=== PATIENT | female | born 1955 | race Caucasian/White ===

== ENCOUNTER 2017-11-21 12:28 | Day surgery (SDC) | payer BC ==
[2017-11-21] MEDS ORDERED: EPINEPHRINE/PF 1 MG/ML AMP ONE (12:38)
[2017-11-21] MEDS ORDERED: BSS PLUS 500 ML BOTTLE IRR ONE (12:38)
[2017-11-21] MEDS ORDERED: MOXIFLOXACIN HCL 10 DROPS/ML **OR USE OPTH ONE (12:38)
[2017-11-21] MEDS ORDERED: DUOVISC 1 KIT OPTH ONE ×2 (12:42→15:38)
[2017-11-21] MEDS ORDERED: NA CHLORIDE 0.9% 500 ML ONE (13:02)
[2017-11-21] MEDS ORDERED: CYCLOPENTOLATE 1% OPTH 2 ML ONE (13:02)
[2017-11-21] MEDS ORDERED: PHENYLEPHRINE 10% OPTH 5ML ONE (13:02)
[2017-11-21] MEDS ORDERED: CYCLOPENTOLATE 1% OPTH 2 ML OPTH ONE ×2 (13:20→13:25)
[2017-11-21] MEDS ORDERED: PHENYLEPHRINE 10% OPTH 5ML OPTH ONE ×2 (13:20→13:25)
[2017-11-21] MEDS ORDERED: PROPOFOL 200 MG/20 ML VIAL IV ONE (14:17)
[2017-11-21] MEDS ORDERED: MIDAZOLAM HCL 2 MG/2 ML INJ ONE (14:17)
[2017-11-21] MEDS ORDERED: FENTANYL CITR 100 MCG/2 ML ONE (15:07)
[2017-11-21] MEDS ORDERED: Phenylephrine HCl 10 MG/ML 1 ML VIAL ONE (15:18)
[2017-11-21] MEDS ORDERED: PROMETHAZINE 25 MG/ML VIAL ONE (15:25)
[2017-11-21] MEDS ORDERED: ONDANSETRON 4 MG/2 ML VIAL ONE (15:29)
[2017-11-21] MEDS ORDERED: EPHEDRINE SULF 50 MG/5 ML SYR ONE (15:33)
--- NOTE | 2017-11-21 15:57 | P.BOP ---
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
--- NOTE | 2017-11-22 03:20 | OP ---
Date of Procedure: 11/21/2017 Surgeon: Vinita Sandra MD Anesthesiologist: 1. Jevon Laurent C.R.N.A. 2. Hamzah Villeda M.D. Preoperative Diagnosis: Nuclear sclerotic cataract and Fuchs dystrophy, OD (right eye). Operation Performed: Phacoemulsification with intraocular lens implant, right eye. Anesthesia: General. Complications: None. Description Of Procedure: In day surgery, the patient was prepped with Betadine and draped. A conju nctival incision was made in the inferior nasal quadrant with Ashlee scissors. A sub-Tenon block c onsisting of a 1:1 mixture of 2% Xylocaine and 0.25% bupivacaine was placed through the conjunctival incision with a blunt cannula. A Honan balloon was placed over the eye and the patient was transferr ed to the operating room. In the operating room the patient was prepped and draped in the usual sterile fashion for ophthalmic surgery. A lid speculum was placed in the right eye. Two paracentesis sites were made superiorly an d inferiorly in the limbal cornea. Viscoat was placed in the anterior chamber and a crescent blade w as used to make a corneal groove and tunnel, and a keratome was used to enter the anterior chamber. Provisc was placed in the anterior chamber and a 360 degree capsulotomy was performed with a cystitom e. The lens was hydrodissected with BSS and rotated freely. The lens was removed with a stop and ch op technique. An 8.09 phaco CDE was used to remove the lens. Residual cortex was removed with the i rrigation and aspiration. Provisc was placed in the capsular bag. A ZCB00 +28.[address] aced in the capsular bag without complications. Irrigation and aspiration were used to remove residu al viscoelastic. The paracentesis sites were hydrated with BSS. The wound and paracentesis sites we re inspected and found to be watertight. Vigamox 0.07 cc was placed intracamerally at the end of the procedure. The eye was irrigated with balanced salt solution. The eye was patched with a soft cott on patch and Rosa metal shield. The patient was returned to day surgery in good condition. Comments: BSS plus was used. Extra Viscoat was used. Scleral incision was created. Discharge Instructions: Ms. West is discharged to home in good condition and is to follow up with Dr. Sandra in the morning. LULA/CARROL Voice ID: [id number] Report ID: [id number]
== END 2017-11-21 17:25 | disposition home or self-care (01) ==
LOC: OR 12:28
PROVIDERS: ATTEND Ophthalmology Retina Specialist
PROC: 08RJ3JZ Replacement of Right Lens with Synthetic Substitute, Percutaneous Approach (ICD-10-PCS; principal; 2017-11-21 12:30)
DX: H25.11 Age-related nuclear cataract, right eye (principal); H18.51 Endothelial corneal dystrophy; H35.3130 Nonexudative age-related macular degeneration, bilateral, stage unspecified; G47.33 Obstructive sleep apnea (adult) (pediatric); M81.0 Age-related osteoporosis without current pathological fracture; Z88.8 Allergy status to other drugs, medicaments and biological substances; Z91.040 Latex allergy status; Z88.6 Allergy status to analgesic agent; Z91.041 Radiographic dye allergy status; Z85.3 Personal history of malignant neoplasm of breast; Z90.10 Acquired absence of unspecified breast and nipple; Z90.710 Acquired absence of both cervix and uterus; Z80.9 Family history of malignant neoplasm, unspecified
CPT/HCPCS: J0171; J2250; J2370; J2405; J2550; J3010

== ENCOUNTER 2018-01-16 09:52 | Day surgery (SDC) | payer BC ==
[2018-01-11 15:34] LABS: Potassium 3.6 mmol/L (3.5-5.1)
[2018-01-16] MEDS ORDERED: NA CHLORIDE 0.9% 500 ML ONE (10:15)
[2018-01-16] MEDS: CYCLOPENTOLATE 1% OPTH 2 ML ONE ×3 (10:30→10:40)
[2018-01-16] MEDS: PHENYLEPHRINE 10% OPTH 5ML ONE ×3 (10:30→10:40)
[2018-01-16] MEDS ORDERED: PROPOFOL 200 MG/20 ML VIAL IV ONE ×2 (10:58→11:46)
[2018-01-16] MEDS ORDERED: FENTANYL CITR 100 MCG/2 ML ONE (10:58)
[2018-01-16] MEDS ORDERED: LIDOCAINE 2% MPF 5 ML VIAL ONE (10:59)
[2018-01-16] MEDS ORDERED: MIDAZOLAM HCL 2 MG/2 ML INJ ONE (10:59)
[2018-01-16] MEDS ORDERED: DUOVISC 1 KIT OPTH ONE (11:26)
[2018-01-16] MEDS ORDERED: NS 0.9% VIAL 10 ML ONE (11:26)
[2018-01-16] MEDS ORDERED: BALANCED SALT IRRIG PLAIN 500 ML BTL IRR ONE (11:26)
[2018-01-16] MEDS: EPINEPHRINE/PF 1 MG/ML AMP ONE ×2 (11:42→11:43)
[2018-01-16] MEDS: BSS PLUS 500 ML BOTTLE IRR ONE ×2 (11:42→11:43)
[2018-01-16] MEDS: MOXIFLOXACIN HCL 10 DROPS/ML **OR USE OPTH ONE ×2 (11:45→12:15)
[2018-01-16] MEDS ORDERED: EPHEDRINE SULF 50 MG/5 ML SYR ONE (11:55)
--- NOTE | 2018-01-16 12:20 | P.BOP ---
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
--- NOTE | 2018-01-16 22:53 | OP ---
Date of Procedure: 01/16/2018 Surgeon: Vinita Sandra MD Anesthesiologist: 1. Abhay Schmitt C.R.N.A. 2. Hamzah Villeda M.D. 3. Sandrita Spear C.R.N.A. Preoperative Diagnosis: Nuclear sclerotic cataract, and Fuchs dystrophy, corneal dystrophy, left eye. Operation Performed: Phacoemulsification with intraocular lens implant, left eye. Anesthesia: General anesthesia. Complications: None. Description Of Procedure: In the operating room the patient was prepped and draped in the usual sterile fashion for ophthalmic surgery. A lid speculum was placed in the OS. Two paracentesis sites were made superiorly and inferiorly in the limbal cornea. Viscoat was placed in the anterior chamber and a crescent blade was used to make a corneal groove and tunnel, and a keratome was used to enter the anterior chamber. Provisc was placed in the anterior chamber and a 360 degree capsulotomy was performed with a cystitome. The lens was hydrodissected with BSS and rotated freely. The lens was removed with a stop and chop technique. 9.1 phaco CDE was used to remove the lens. Residual cortex was removed with the irrigation and aspiration. Provisc was placed in the capsular bag. A ZCBOO +28.5 diopter lens was placed in the capsular bag without complications. Irrigation and aspiration was used to remove residual viscoelastic. The paracentesis sites were hydrated with BSS. The wound and paracentesis sites were inspected and found to be watertight. Vigamox 0.07 cc was placed intracamerally at the end of the procedure. The eye was irrigated with balanced salt solution. The eye was patched with a soft cotton patch and Rosa metal shield. Comments: General anesthesia was required because the patient is allergic to lidocaine. BSS plus was used. A scleral incision was created temporally after incising the conjunctiva. The patient was returned to day surgery in good condition. Discharge Instructions: Ms. West is discharged to home in good condition and is to follow up with Dr. Sandra in the morning. LULA/CARROL Voice ID: [id number] Report ID: [id number] [facility]
== END 2018-01-16 13:09 | disposition home or self-care (01) ==
LOC: OR 09:52
PROVIDERS: ATTEND Ophthalmology Retina Specialist
PROC: 08RK3JZ Replacement of Left Lens with Synthetic Substitute, Percutaneous Approach (ICD-10-PCS; principal; 2018-01-16 10:45)
DX: H25.12 Age-related nuclear cataract, left eye (principal); H18.51 Endothelial corneal dystrophy; M81.0 Age-related osteoporosis without current pathological fracture; Z88.8 Allergy status to other drugs, medicaments and biological substances; Z88.6 Allergy status to analgesic agent; Z91.040 Latex allergy status; Z91.041 Radiographic dye allergy status; Z85.3 Personal history of malignant neoplasm of breast; Z90.10 Acquired absence of unspecified breast and nipple; Z80.9 Family history of malignant neoplasm, unspecified
CPT/HCPCS: 36415; 80048; J0171; J2250; J3010

== ENCOUNTER 2020-11-07 15:40 | Emergency (ER) | payer BC, OTHER ==
--- OUTSIDE RECORDS SUMMARY | 2020-11-07 15:42 | XMS REPORT | Continuity of Care Document ---
:1955 Author Organization [facility] t Address [address] Tadeo [address] [place] [id number] Care Team Providers Name Role Phone PANDA Primary Care Physician Unavailable Katerine VIRGEN Attending Clinician Unavailable Payers Payer Name Policy Type Policy Number Effective Date Expiration Date S jennie MEDICARE PART A [id number] 2018 AND B 00:00:00 AETNA [facility] [id number] 2020 SUPPLEMENT-SECONDA 00:00:00 RY ONLY Problems Condition Condition Condition Status Onset Resolution Last Treating Co mments Source Name Details Category Date Date Treatment Clinician Date Acute left Acute left Problem Active [facility] ankle pain ankle pain [facility] Lower Lower Problem Active [facility] abdominal abdominal [facility] - pain pain [facility] Otorrhea Otorrhea Problem Active [facility] left [facility] left [facility] ear [facility] Cat bite, Cat bite, Problem Active [facility] initial initial [facility] encounter encounter Ralf alden l [facility] Palpitatio Palpitatio Problem Active [facility] Reactive Reactive Problem Active [facility] depression depression [facility] 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 Mari k[facility] Dyspnea on Dyspnea on Problem Active [facility] exertion exertion [facility] Allergies, Adverse Reactions, Alerts Allergy Allergy Status Severity Reaction(s) Onset Inactive Treating Comm ents Source Name Type Date Date Clinician Marcaine Adverse Active Info Not [facility] Reaction [facility] Lidocain Adverse Active Info Not [facility] Reaction [facility] IVP dye Adverse Active Info Not [facility] Reaction Available [facility] MORPHINE Adverse Active Info Not [facility] Reaction Available [facility] Medications Ordered Filled Start Stop Current Ordering Indication Dosage Frequency Signature Comments Components Source Medication Medication Date Date Medication? Clinician (SIG) Name Name cora shepherd 2019- No Indira apply [facility] 04-23 [place] [facility] Venlafaxine Venlafaxine Yes Indira [address] [facility] HCl HCl [place] with food [facility] Venlafaxine Venlafaxine Yes Indira not [facility] HCl HCl [place] defined [facility] Tamoxifen Tamoxifen Yes Indira [address] [facility] Citrate Citrate [place] [facility] Procedures This patient has no known procedures. Encounters Start End Encounter Admission Attending Care Care Encounter Source Date/Time Date/Time Type Type Clinicians Facility Department ID 2020-07-06 2020-07-06 Outpatient MARCELA HUBERZOËNATALIE HARRISON [id number] 10:31:30 10:31:30 ELIJAH corea n 2020-01-17 2020-01-17 Outpatient Dimitri Mosleyt [id number] [facility] 11[facility]40[facility]00 11[facility]40[facility]00 [facility] ent [facility] 2019-04-23 2019-04-23 Outpatient Dimitri Mosleyt [id number] [facility] 15:20:00 15:20:00 t [facility] ent [facility] 2018-09-06 2018-09-06 Outpatient [facility]imitri [facility] [id number] [facility] 09:25:00 09:25:00 t [facility] ent [facility] 2018-08-31 2018-08-31 Out[facility]ri [facility] [id number] [facility] 13:15:00 13:15:00 t [facility] Results This patient has no known results.
--- NOTE | 2020-11-07 17:34 | RAD REPORT ---
EXAM DESCRIPTION: US - Extrem Venous W Compress Jaspreet - 11/07/2020 5:28 pm CLINICAL HISTORY: PAIN, bilateral legs COMPARISON: None. TECHNIQUE: Real-time sonographic evaluation of the bilateral lower extremity common femoral, superfi cial femoral, popliteal and posterior tibial veins was performed. FINDINGS: Normal compressibility, flow augmentation, phasic flow and spontaneous flow are identified in the left and right lower extremity common femoral, superficial femoral, popliteal and posterior t ibial veins. No intraluminal filling defects seen. IMPRESSION: No DVT in either lower extremity.
--- NOTE | 2020-11-07 17:53 | RAD REPORT ---
EXAM DESCRIPTION: RAD - Chest Single View - 11/07/2020 5:29 pm CLINICAL HISTORY: SOB, hypertension COMPARISON: Portable May 2011 TECHNIQUE: AP portable chest image was obtained 11/07/2020 5:29 pm . FINDINGS: No peripheral mass or consolidation. No failure or volume overload. Surgical clips are see n in the right breast and chest soft tissues. No failure or volume overload. Clips also seen along th e lower left chest soft tissues. Heart and vasculature are normal. No measurable pleural effusion and no pneumothorax. No acute bony abnormality seen. No acute aortic findings suspected. IMPRESSION: No acute cardiopulmonary process.
[2020-11-07 18:22] LABS: Absolute Lymphocytes (CBC) 0.5 K/uL (0.7-4.9); Basophils % 0.4 % (0-1.3); Hematocrit 36.7 % (36.0-45.0); Lymphocytes % 5.1 % (15.3-44.8); MPV 8.4 fL (7.6-11.3); Protime INR 1.05; RBC Red Blood Cell Count 4.15 M/uL (3.86-4.86)
[2020-11-07 18:36] LABS: ALT/SGPT 26 U/L (12-78); AST/SGOT 24 U/L (15-37); Albumin 3.5 g/dL (3.4-5.0); Alkaline Phosphatase 102 U/L (45-117); BUN Blood Urea Nitrogen 11 mg/dL (7-18); Bicarbonate 27 mmol/L (21-32); Bilirubin Direct < 0.1 mg/dL (0-0.2); Bilirubin Total 0.3 mg/dL (0.2-1.0); Glucose Level 112 mg/dL (74-106); Magnesium 2.1 mg/dL (1.8-2.4); NT PRO-BNP 97 pg/mL (<125); Protein, Total 7.8 g/dL (6.4-8.2); Sodium Level 142 mmol/L (136-145); Troponin (Emerg Dept Use Only) < 0.02 ng/mL (0.0-0.045)
[2020-11-07 18:58] LABS: Urine Bacteria <20 /HPF (<20); Urine RBC <5 /HPF (NONE SEEN)
[2020-11-07] MEDS ORDERED: METHYLPREDNISOLONE 125 MG INJ ONE (19:04)
[2020-11-07] MEDS ORDERED: DIPHENHYDRAMINE 50 MG/ML VIAL ONE (19:04)
[2020-11-07] MEDS ORDERED: NA CHLORIDE 0.9% 500 ML ONE (19:04)
--- NOTE | 2020-11-07 19:33 | RAD REPORT ---
EXAM DESCRIPTION: CT - Chest For Pe Angio - 11/07/2020 7:04 pm CLINICAL HISTORY: Palpitations;SOB COMPARISON: Chest Single View dated 11/07/2020 TECHNIQUE: Dynamically enhanced 3 mm thick images of the chest were obtained during administration o f approximately 150mL Isovue 370 IV contrast. Coronal and oblique MIP reconstruction images were gene rated and reviewed. Exam utilizes a protocol to evaluate the pulmonary arterial tree. All CT scans are performed using dose optimization technique as appropriate and may include automated exposure control or mA/KV adjustment according to patient size. FINDINGS: No pulmonary emboli are identified. The aorta as imaged shows no acute or suspicious finding. No pericardial thickening or effusion. No acute infiltrate in the lung parenchyma. There is a 5 millimeter pulmonary nodule in the inferior aspect of the right upper lobe abutting the minor fissure (image 60/104). This is spiculated on the l ateral margin. No other mass or nodule seen. No pleural effusion or pleural thickening. No mediastinal or hilar suspicious masses. No chest wall masses or abnormal axillary lymphadenopathy. IMPRESSION: No pulmonary emboli identified. Small 5 mm right upper lobe pulmonary nodule can be re-evaluated with CT imaging in 12 months.
--- NOTE | 2020-11-07 19:34 | RAD REPORT ---
EXAM DESCRIPTION: CT - Head Brain Wo Cont - 11/07/2020 7:04 pm CLINICAL HISTORY: DIZZINESS COMPARISON: HEAD BRAIN W O CONTRAST dated 06/11/2011 TECHNIQUE: Axial 5 mm thick images of the head were obtained without IV contrast. All CT scans are performed using dose optimization technique as appropriate and may include automated exposure control or mA/KV adjustment according to patient size. FINDINGS: No intracranial hemorrhage, mass, edema or shift of mid-line structures. No acute infarcti on changes seen. No abnormal extra-axial fluid collections. Ventricles are normal. No significant atr ophy or chronic ischemic changes seen. Physiologic calcifications are present. Mastoid air cells and visualized portions of the paranasal sinuses are clear. No acute bony findings. IMPRESSION: Negative non-contrast CT head examination.
[2020-11-07 20:24] LABS: Blood Morphology Comment NOT SEEN (NOT SEEN); Platelet Estimate ADEQ; White Blood Cell Scan OK (OK)
--- NOTE | 2020-11-07 21:36 | ER ---
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 I don't ca1 have high BP, never been diagnosed with HPN. I didn't feel right that's why I checked it. I felt dizzy, SOB, feeling tingly and felt like I was going to pass out. Coronavirus screen: Client denies travel out of the [place] in the last 14 days. At this time, the client does not indicate any symptoms associated with coronavirus-19. Ebola Screen: Patient negative for fever greater than or equal to 101.5 degrees Fahrenheit, and additional compatible Ebola Virus Disease symptoms Patient denies exposure to infectious person. Patient denies travel to an Ebola-affected area in the 21 days before illness onset. No symptoms or risks identified at this time. Initial Sepsis Screen: Does the patient meet any 2 criteria? No. Patient's initial sepsis screen is negative. Does the patient have a suspected source of infection? No. Patient's initial sepsis screen is negative. Risk Assessment: Do you want to hurt yourself or someone else? Patient reports no desire to harm self or others. Onset of symptoms was November 07, 2020. 15:49 Method Of Arrival: Ambulatory ca1 15:49 Acuity: MADY 2 ca1 Historical: - Allergies: 15:57 Iodine; ca1 15:57 Iodinated Contrast Media - IV Dye; ca1 15:57 Lidocaine; ca1 15:57 Morphine; ca1 15:57 Marcaine; ca1 15:57 Scopolamine HBr; ca1 15:57 Darvon; ca1 15:57 Compazine; ca1 15:57 Latex, Natural Rubber; ca1 15:57 Actonel; ca1 15:57 actifed; ca1 - PMHx: 15:57 breast Cancer; allergies; ca1 - PSHx: 15:57 Hysterectomy; Mastectomy, Left; Mastectomy, Right; Knee surgery; Exploratory lap; ca1 Appendectomy; - Immunization history:: Client reports receiving the 2nd dose of the Covid vaccine, Client reports receiving the 1st dose of the Covid vaccine, Pneumococcal vaccine is not up to date, Flu vaccine is up to date. - Social history:: Smoking status: Patient denies any tobacco usage or history of. Screenin:35 Abuse screen: Denies threats or abuse. Nutritional screening: No deficits noted. bw Tuberculosis screening: No symptoms or risk factors identified. Fall Risk None identified. Assessment: 16:32 Pain: Denies pain. Neuro: No deficits noted. Cardiovascular: No deficits noted. iw Respiratory: No deficits noted. GI: No deficits noted. : No deficits noted. EENT: No deficits noted. 17:18 Reassessment: Patient appears in no apparent distress at this time. Patient and/or bw family updated on plan of care and expected duration. Pain level reassessed. Patient is alert, oriented x 3, equal unlabored respirations, skin warm/dry/pink. 18:11 Reassessment: Patient appears in no apparent distress at this time. Patient and/or iw family updated on plan of care and expected duration. Pain level reassessed. Patient is alert, oriented x 3, equal unlabored respirations, skin warm/dry/pink. 19:36 Reassessment: Patient appears in no apparent distress at this time. Patient and/or sf family updated on plan of care and expected duration. Pain level reassessed. Patient is alert, oriented x 3, equal unlabored respirations, skin warm/dry/pink. 20:30 Reassessment: Patient appears in no apparent distress at this time. Patient and/or sf family updated on plan of care and expected duration. Pain level reassessed. Patient is alert, oriented x 3, equal unlabored respirations, skin warm/dry/pink. Vital Signs: 15:49 BP 170 / 87; Pulse 114; Resp 15 S; Temp 98.3(TE); Pulse Ox 99% on R/A; Weight 97.52 kg ca1 (R); Height 5 ft. 7 in. (170.18 cm); Pain 0/10; 18:10 BP 124 / 73; Pulse 99; Resp 16; Pulse Ox 98% on R/A; iw 19:08 BP 130 / 63; Pulse 100; Resp 16; Pulse Ox 99% ; sf 20:15 BP 123 / 53; Pulse 89; Resp 16; Pulse Ox 97% ; sf 21:00 BP 110 / 54; Pulse 82; Resp 16; Pulse Ox 98% ; sf 15:49 Body Mass Index 33.67 (97.52 kg, 170.18 cm) ca1 ED Course: 15:43 Patient arrived in ED. as 15:52 Triage completed. ca1 15:57 Arm band placed on right wrist. ca1 16:08 Tod Bo PA is PHCP. cp 16:08 Michael Sinclair MD is Attending Physician. cp 16:32 Anna Rico, RN is Primary Nurse. iw 17:27 XRAY Chest (1 view) In Process Unspecified. EDMS 17:28 US Extremity Venous W Compression Jaspreet In Process Unspecified. EDMS 17:35 Patient has correct armband on for positive identification. Bed in low position. Call bw light in reach. Side rails up X 1. Pulse ox on. NIBP on. Warm blanket given. 17:35 No provider procedures requiring assistance completed. Inserted saline lock: 20 gauge bw in right forearm, using aseptic technique. 18:11 Initial lab(s) drawn, by me, sent to lab. Inserted saline lock: 22 gauge in left iw antecubital area, using aseptic technique. Blood collected. 19:04 Adam Curry, VIKI is Primary Nurse. sf 19:10 Patient moved back from CT. sf 19:10 CT Chest For PE Angio Sent. sf 19:10 CT Head Brain wo Cont Sent. sf 19:11 CT Chest For PE Angio In Process Unspecified. EDMS 19:11 CT Head Brain wo Cont In Process Unspecified. EDMS 21:35 Silvio Nassar MD is Referral Physician. cp 21:46 IV discontinued, intact, bleeding controlled, No redness/swelling at site. Pressure sf dressing applied. Administered Medications: 18:45 Drug: NS 0.9% 500 ml Route: IV; Rate: bolus; Site: left antecubital; ca1 20:29 Follow up: Response: No adverse reaction; IV Status: Completed infusion; IV Intake: sf 500ml 18:47 Drug: SOLU-Medrol (methylPrednisoLONE) 125 mg Route: IVP; Site: left antecubital; ca1 20:29 Follow up: Response: No adverse reaction sf 18:49 Drug: Benadryl (diphenhydrAMINE) 25 mg Route: IVP; Site: left antecubital; ca1 20:29 Follow up: Response: No adverse reaction sf Intake: 20:29 IV: 500ml; Total: 500ml. sf Outcome: 21:35 Discharge ordered by MD. cp 21:46 Discharged to home ambulatory. sf 21:46 Condition: good 21:46 Discharge instructions given to patient, Instructed on discharge instructions, follow up and referral plans. Demonstrated understanding of instructions, follow-up care, Prescriptions given X 0 21:47 Patient left the ED. sf Signatures: Dispatcher [employer] Jewell Fong Irene, RN RN iw Tod Bo PA PA cp Acob, Cheryl, RN RN ca1 Adam Curry RN RN Divina Angulo RN RN Corrections: (The following items were deleted from the chart) 16:47 15:49 Chief complaint: Patient states: BP has been high for 1.5 hrs, HBP 210/125. I ca1 don't have high BP, never been diagnosed with HPN. I didn't feel right that's why I checked it. I felt dizzy, SOB, feeling tingly and felt like I was going to pass out. ca1
--- NOTE | 2020-11-07 21:36 | EDPHYS ---
Physician Documentation [facility] Name: Kasia March Age: 65 yrs Sex: Female : 1955 Arrival Date: 11/07/2020 Time: 15:43 Bed 15 Private MD: ED Physician Michael Sinclair HPI: 11/07 16:30 This 65 yrs old Female presents to ER via Ambulatory with complaints of High cp Blood Pressure, Doesn't Feel Right. 16:30 The patient has elevated blood pressure and discovered this at home. Onset: The cp symptoms/episode began/occurred today. 16:30 Associated signs and symptoms: Pertinent positives: dizziness, lightheadedness, cp shortness of breath with exertion over past several days, Pertinent negatives: chest pain, headache, vomiting, weakness. Severity of symptoms: in the emergency department the blood pressure is improved, 170 mm Hg. 16:30 Patient reports shortness of breath worse today while walking in grocery store. Patient cp denies chest pain, denies weakness. Reports she became dizzy and felt like she was going to pass out. Historical: - Allergies: 15:57 Iodine; ca1 15:57 Iodinated Contrast Media - IV Dye; ca1 15:57 Lidocaine; ca1 15:57 Morphine; ca1 15:57 Marcaine; ca1 15:57 Scopolamine HBr; ca1 15:57 Darvon; ca1 15:57 Compazine; ca1 15:57 Latex, Natural Rubber; ca1 15:57 Actonel; ca1 15:57 actifed; ca1 - PMHx: 15:57 breast Cancer; allergies; ca1 - PSHx: 15:57 Hysterectomy; Mastectomy, Left; Mastectomy, Right; Knee surgery; Exploratory lap; ca1 Appendectomy; - Immunization history:: Client reports receiving the 2nd dose of the Covid vaccine, Client reports receiving the 1st dose of the Covid vaccine, Pneumococcal vaccine is not up to date, Flu vaccine is up to date. - Social history:: Smoking status: Patient denies any tobacco usage or history of. ROS: 16:35 Constitutional: Negative for body aches, chills, fever, poor PO intake. cp 16:35 Eyes: Negative for injury, pain, redness, and discharge. cp 16:35 Cardiovascular: Positive for palpitations, Negative for chest pain, edema. 16:35 Respiratory: Positive for shortness of breath, on exertion. Negative for cough, wheezing. 16:35 Abdomen/GI: Negative for abdominal pain, nausea, vomiting, and diarrhea. 16:35 Neuro: Positive for dizziness, near syncope, Negative for altered mental status, headache, numbness, tingling, weakness. 16:35 All other systems are negative. Exam: 16:42 Constitutional: The patient appears in no acute distress, alert, awake, cp non-diaphoretic, non-toxic, well developed, well nourished. 16:42 Head/Face: Normocephalic, atraumatic. cp 16:42 Eyes: Periorbital structures: appear normal, Pupils: equal, round, and reactive to light and accomodation, Extraocular movements: intact throughout, Conjunctiva: normal, no exudate, no injection, Sclera: no appreciated abnormality, Lids and lashes: appear normal, bilaterally. 16:42 ENT: External ear(s): are unremarkable, Ear canal(s): are normal, clear, TM's: dullness, bilaterally, Nose: is normal, Mouth: Lips: moist, Oral mucosa: moist, Posterior pharynx: Airway: no evidence of obstruction, patent. 16:42 Neck: ROM/movement: is normal, is supple, without pain, no range of motions limitations. 16:42 Chest/axilla: Inspection: normal, Palpation: is normal, no crepitus, no tenderness. 16:42 Cardiovascular: Rate: normal, Rhythm: regular, Edema: is not appreciated, JVD: is not appreciated. 16:42 Respiratory: the patient does not display signs of respiratory distress, Respirations: normal, no use of accessory muscles, no retractions, labored breathing, is not present, Breath sounds: are clear throughout, no decreased breath sounds, no stridor, no wheezing. 16:42 Abdomen/GI: Inspection: abdomen appears normal, Palpation: abdomen is soft and non-tender, in all quadrants. 16:42 Back: pain, is absent, ROM is normal. 16:42 Skin: cellulitis, is not appreciated, no rash present. 16:42 Neuro: Orientation: to person, place \T\ time. Mentation: is normal, Cerebellar function: is grossly normal, Motor: moves all fours, strength is normal, Sensation: is normal. 18:10 ECG was reviewed by the Attending Physician. Vital Signs: 15:49 BP 170 / 87; Pulse 114; Resp 15 S; Temp 98.3(TE); Pulse Ox 99% on R/A; Weight 97.52 kg ca1 (R); Height 5 ft. 7 in. (170.18 cm); Pain 0/10; 18:10 BP 124 / 73; Pulse 99; Resp 16; Pulse Ox 98% on R/A; iw 19:08 BP 130 / 63; Pulse 100; Resp 16; Pulse Ox 99% ; sf 20:15 BP 123 / 53; Pulse 89; Resp 16; Pulse Ox 97% ; sf 21:00 BP 110 / 54; Pulse 82; Resp 16; Pulse Ox 98% ; sf 15:49 Body Mass Index 33.67 (97.52 kg, 170.18 cm) ca1 MDM: 16:11 Patient medically screened. cp 19:00 Differential diagnosis: hypertensive crisis, Malignant HTN, CVA, intracerebral cp hemorrhage, acute IL, pulmonary embolism, cardiac arrythmia, CHF. 21:34 Data reviewed: vital signs, nurses notes, lab test result(s), EKG, radiologic studies, cp CT scan, plain films, and as a result, I will discharge patient. Test interpretation: by ED physician or midlevel provider: ECG, plain radiologic studies. 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 11/07 16:25 Order name: Basic Metabolic Panel; Complete Time: 18:40 cp 11/07 19:37 Interpretation: Normal except: GLUC 112. 11/07 16:25 Order name: CBC with Diff; Complete Time: 21:33 cp 11/07 19:38 Interpretation: Normal except: ISIDRA% 89.5; LYM% 5.1; NEUT A 9.4. cp 11/07 16:25 Order name: LFT's; Complete Time: 18:40 cp 11/07 19:38 Interpretation: Normal except: GLOB 4.3; A/G 0.8. 11/07 16:25 Order name: Magnesium; Complete Time: 18:40 cp / 16:25 Order name: NT PRO-BNP; Complete Time: 18:40 cp 11/07 16:25 Order name: PT-INR; Complete Time: 18:40 cp 11/07 16:25 Order name: Troponin (emerg Dept Use Only); Complete Time: 18:40 cp 11/07 16:25 Order name: XRAY Chest (1 view); Complete Time: 18:08 cp 11/07 18:08 Interpretation: Report review. cp 11/07 16:25 Order name: Urine Microscopic Only; Complete Time: 19:36 cp 11/07 16:25 Order name: D-Dimer; Complete Time: 18:40 cp 11/07 19:38 Interpretation: Abnormal: D-DIMER 785. cp 11/07 16:25 Order name: US Extremity Venous W Compression Jaspreet; Complete Time: 17:38 cp 11/07 18:08 Interpretation: Report reviewed. cp 11/07 20:23 Order name: Troponin I cp 11/07 20:23 Order name: Troponin I; Complete Time: 21:33 EDMS 11/07 20:24 Order name: CBC Smear Scan; Complete Time: 21:33 EDMS 11/07 16:25 Order name: EKG; Complete Time: 16:25 cp 11/07 16:25 Order name: Cardiac monitoring; Complete Time: 18:06 cp 11/07 16:25 Order name: EKG - Nurse/Tech; Complete Time: 18:06 cp 11/07 16:25 Order name: IV Saline Lock; Complete Time: 17:58 cp 11/07 16:25 Order name: Labs collected and sent; Complete Time: 17:59 cp 11/07 16:25 Order name: O2 Per Protocol; Complete Time: 17:59 cp 11/07 16:25 Order name: O2 Sat Monitoring; Complete Time: 17:59 cp 11/07 16:25 Order name: Urine Dipstick-Ancillary (obtain specimen); Complete Time: 18:12 cp 11/07 18:40 Order name: CT Chest For PE Angio; Complete Time: 19:36 cp 11/07 19:37 Interpretation: Report reviewed. cp 11/07 18:55 Order name: CT Head Brain wo Cont; Complete Time: 19:36 cp 11/07 19:39 Interpretation: Report reviewed. cp EC:10 Rate is 96 beats/min. Rhythm is regular. RI interval is normal. QRS interval is normal. cp QT interval is normal. T waves are Inverted in lead aVR. Interpreted by me. Reviewed by me. Administered Medications: 18:45 Drug: NS 0.9% 500 ml Route: IV; Rate: bolus; Site: left antecubital; ca1 20:29 Follow up: Response: No adverse reaction; IV Status: Completed infusion; IV Intake: sf 500ml 18:47 Drug: SOLU-Medrol (methylPrednisoLONE) 125 mg Route: IVP; Site: left antecubital; ca1 20:29 Follow up: Response: No adverse reaction sf 18:49 Drug: Benadryl (diphenhydrAMINE) 25 mg Route: IVP; Site: left antecubital; ca1 20:29 Follow up: Response: No adverse reaction sf Disposition: 11/07/20 21:35 Discharged to Home. Impression: Elevated blood-pressure reading, without diagnosis of hypertension, Palpitations, Dyspnea, unspecified. - Condition is Stable. - Discharge Instructions: Palpitations, Shortness of Breath, How to Take Your Blood Pressure, [id number], Aspirin and Your Heart, Form - Blood Pressure Record Sheet. - Medication Reconciliation Form, Thank You Letter, Antibiotic Education, Prescription Opioid Use form. - Follow up: Silvio Nassar MD; When: 2 - 3 days; Reason: Recheck today's complaints. - Problem is new. - Symptoms have improved. Addendum: 11/12/2020 10:10 Co-signature as Attending Physician, Michael Sinclair MD I agree with the assessment and t w4 plan of care. Signatures: Dispatcher [employer] EDMS Tod Bo PA PA cp Wadley, Terrence, MD MD tw4 Carla Nguyễn RN RN ca1 Adam Curry RN RN sf Corrections: (The following items were deleted from the chart) 04 21:47 21:35 11/07/2020 21:35 Discharged to Home. Impression: Elevated blood-pressure reading, sf without diagnosis of hypertension; Palpitations; Dyspnea, unspecified. Condition is Stable. Forms are Medication Reconciliation Form, Thank You Letter, Antibiotic Education, Prescription Opioid Use. Follow up: Silvio Nassar; When: 2 - 3 days; Reason: Recheck today's complaints. Problem is new. Symptoms have improved. cp
[2020-11-07 22:14] VITALS: TEMP 98.3
[2020-11-07 22:20] VITALS: BP 110/54; O2SAT 98
[2020-11-12 16:24] LABS: Urine Blood NEGATIVE (Negative); Urine Glucose NEGATIVE (Negative); Urine Protein NEGATIVE (Negative); Urine pH 7.5 (5.0-7.0)
== END 2020-11-07 21:47 | disposition home or self-care (01) ==
LOC: ER 15:40
DX: R03.0 Elevated blood-pressure reading, without diagnosis of hypertension (principal); R00.2 Palpitations; R06.00 Dyspnea, unspecified; Z85.3 Personal history of malignant neoplasm of breast; Z88.5 Allergy status to narcotic agent; Z88.8 Allergy status to other drugs, medicaments and biological substances; Z91.040 Latex allergy status; Z91.041 Radiographic dye allergy status; Z91.048 Other nonmedicinal substance allergy status
CPT/HCPCS: 96361; 93005; 85025; 80048; 36415; 83735; 85610; 85379; 80076; 81015; 84484 ×2; 83880; 70450; 71275; 71045; 93970; 96375; 96374; 99284; Q9967; J1200; J7040; J2930; 81003

== ENCOUNTER 2022-10-01 11:55 | Emergency (ER) | payer OTHER ==
--- OUTSIDE RECORDS SUMMARY | 2022-10-01 12:05 | XMS REPORT | Continuity of Care Document ---
:1955 Author Organization [facility] t Address [address] [place] [address] [address] [place] [address] Care Team Providers Name Role Phone PCP, PATIENT DOES NOT HAVE A Primary Care Physician UnavailLEANDRO Gonzalez Attending Clinician Unavailable ABEBE ESPINOZA Attending Clinician Unavailable ANDRZEJ ETIENNE Attending Clinician Unavailable JUANITO ANNA Attending Clinician Unavailable RUBY MOSQUEDA Attending Clinician Unavailable EUGENIO MOORE Attending Clinician Unavailable MARCELA ZAMORA Attending Clinician Unavailable Marcela Zamora MD Attending Clinician Only, Adc Test Attending Clinician Unavailable Ronny Pearson MD Attending Clinician RONNY PEARSON Attending Clinician Unavailable Doctor Unassigned, [place] Attending Clinician Unavailable HARISH CASTELLANO Attending Clinician Unavailable ELIJAH VIRGEN Attending Clinician Unavailable MARCELA ZAMORA Admitting Clinician Unavailable Marcela Zamora MD Admitting Clinician Payers Payer Name Policy Type Policy Effective Date Expiration Date Sour ce Number MEDICARE PART A [id number] 2018 AND B 00:00:00 AETNA [facility] [id number] 2020 SUPPLEMENT-SECOND 00:00:00 [place] ONLY AETNA PPO POS [id number] 00:00:00 [place] P[place] POS [id number] 2016 2017 00:00:00 00:00:00 MEDICARE PART A [id number] 2018 \T\ B 00:00:00 CONTINENTAL [id number] 2020 BENEFITS 00:00:00 MEDICARE NOVITAS MB [id number] 2020 [facility] 00:[facility]:00 [facility] Aetna Senior C1 [id number] [facility] MEDICARE NOVITAS MB [id number] 2020 [facility] 00:00:00 - [facility] Aetna Senior C1 [id number] [facility] A[employer]na Senior C1 [id number] [facility] MEDICARE NOVITAS MB [id number] 2020 [facility] 00:00:00 [facility] MEDICARE NOVITAS MB [id number] 2020 [facility] 00:00:00 - [facility] Aetna Senior C1 [id number] [facility] A[employer]na Senior C1 [id number] [facility] MEDICARE NOVITAS MB [id number] 2020 [facility] 00:00:00 - [facility] MEDICARE NOVITAS MB [id number] 2020 [facility] 00:00:00 - [facility] A[employer]na Senior C1 [id number] [facility] A[employer]na Senior C1 [id number] [facility] MEDICARE NOVITAS MB [id number] 2020 [facility] 00:00:00 [facility] Problems Condition Condition Condition Status Onset Resolution Last Treating Co mments Source Name Details Category Date Date Treatment Clinician Date GERD GERD Disease Active Univers (gastroeso (gastroeso 2-21 it y of phageal phageal 00:00: [place] reflux reflux 00 Medical disease) disease) Branch Peripheral Peripheral Disease Active U nivers neuropathy neuropathy 2-21 it y of 00:00: [place] 00 Medical Branch JERRY on JERRY on Disease Active Univers CPAP CPAP 2-21 ity of 00:00: 00 Medical Branch Depression Depression Disease Active U nivers 2-21 ity of 00:00: Medical Branch Breast Breast Disease Active Univers cancer, cancer, 2-21 ity of BRCA1 BRCA1 00:00: [place] positive positive 00 Medica l Branch Pancreatic Pancreatic Disease Active U nivers abnormalit abnormalit 2-21 it y of y y 00:00: [place] 00 Medical Branch Varicose Varicose Disease Active Unive rs veins of veins of 2-21 ity of both lower both lower 00:[place] extremitie extremitie 00 Me dical s s Branch Obesity Obesity Disease Active Univers with body with body 2-21 ity of mass index mass index [place] (BMI) of (BMI) of 00 Medica l 30.0 to 30.0 to Branch 39.9 39.9 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 [place] Vitamin D Vitamin D Disease Active Uni vers deficiency deficiency 6-05 it y of 00:00: Medical [facility] Family Family Disease Active [facility] history of history of 1-10 it y of malignant malignant [place] ne[place] neoplasm [place] Med[place] of of Branch pancreas pancreas [id number] Reactive Problem Commo n depression [facility] [id number] Lower Problem Common abdominal [facility] pain [facility] [id number] Dyspnea on Problem Com mon exertion [facility] [id number] Palpitatio Problem Com mon ns [facility] [id number] Cat bite, Problem Com mon initial [facility] [id number] Acute left Problem C ommon 9105 ankle pain [facility] [id number] Otorrhea Problem Com mon [id number] of left [facility] ear [facility] [id number] 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 [facility] Allergies, Adverse Reactions, Alerts Allergy Allergy Status Severity Reaction(s) Onset Inactive Treating Comm ents Source Name Type Date Date Clinician DIATRIZO DRUG Active Unknown-Cmnt Un keny ATE INGREDI 3-28 ity of SODIUM 00:00: [place] 00 [facility] TRIPROLI DRUG Active Unknown-Cmnt Un keny DINE-PSE 3- ity of UDOEPHED 00:00: [place] RINE 00 Medical Branch Diatrizo Propensi Active Unknown - Uni vers ate ty to See comments 3- ity of Sodium adverse 00:00: [place] reaction 00 Medical s Branch Triproli Propensi Active Unknown - Uni vers dine-Pse ty to See comments 3 it y of udoephed adverse 00:00: [place] rine reaction 00 Medical s Branch ALOE DRUG Active Unknown-Cmnt Univ ers INGREDI 2- ity of 00:00: [place] 00 Medical Branch BUPIVACA DRUG Active Unknown-Cmnt Un keny INE INGREDI 2-02 ity of 00:00: [place] 00 Medical Branch EGG DRUG Active Unknown-Cmnt Univ ers INGREDI 2-02 ity of 00:00: [place] 00 Medical Branch EUCALYPT DRUG Active Unknown-Cmnt Un keny US INGREDI 2-02 ity of 00:00: [place] 00 Medical Branch GLUTEN DRUG Active Unknown-Cmnt Univ ers INGREDI 2-02 ity of 00:00: [place] 00 Medical Branch IODINATE Drug Active Unknown-Cmnt Un keny D Class 2-02 ity of CONTRAST 00:00: [place] MEDIA 00 Medical Branch LACTOSE DRUG Active Unknown-Cmnt Uni vers INGREDI 2-02 ity of 00:00: [place] 00 Medical Branch LATEX DRUG Active Unknown-Cmnt Univ ers INGREDI 2-02 ity of 00:00: [place] 00 Medical Branch LIDOCAIN DRUG Active Unknown-Cmnt Un keny E INGREDI 2-02 ity of 00:00: [place] 00 Medical Branch MORPHINE DRUG Active Unknown-Cmnt Un keny INGREDI 2-02 ity of 00:00: [place] 00 Medical Branch NICKEL DRUG Active Unknown-Cmnt Univ ers INGREDI 08-26 ity of 00:00: [place] 00 Medical Branch ONION DRUG Active Unknown-Cmnt Univ ers INGREDI 08-26 ity of 00:00: [place] 00 Medical Branch PROCHLOR DRUG Active Unknown-Cmnt Un keny PERAZINE INGREDI 08-26 ity of 00:00: [place] [facility] PROPOXYP DRUG Active Unknown-Cmnt Un keny HENE INGREDI 08-26 ity of 00:00: [place] 00 Medical Branch RISEDRON DRUG Active Unknown-Cmnt Un keny ATE INGREDI 08-26 ity of SODIUM 00:00: [place] 00 Medical Branch SCOPOLAM DRUG Active Unknown-Cmnt Un keny INE INGREDI 08-26 ity of 00:00: [place] 00 Medical Branch TUBERCUL DRUG Active Unknown-Cmnt Un keny IN 08-26 ity of 00:00: [place] 00 Medical Branch WHEAT DRUG Active Unknown-Cmnt Univ ers INGREDI 08-26 ity of 00:00: [place] 00 Medical Branch Aloe Propensi Active Unknown - Unive rs ty to See comments 2- ity of adverse 00:00: [place] reaction 00 Medical s Branch Bupivaca Propensi Active Unknown - Uni vers ine ty to See comments 2 ity of adverse 00:00: [place] reaction 00 Medical s Branch Egg Propensi Active Unknown - Unive rs ty to See comments 2- ity of adverse 00:00: [place] reaction 00 Medical s Branch Eucalypt Propensi Active Unknown - Uni vers us ty to See comments 2- ity of adverse 00:00: [place] reaction 00 Medical s Branch Gluten Propensi Active Unknown - Unive rs ty to See comments 2- ity of adverse 00:00: [place] reaction 00 Medical s Branch Iodinate Propensi Active Unknown - Uni vers d ty to See comments 2- ity of Contrast adverse 00:00: [place] Media reaction 00 Medical s Branch Lactose Propensi Active Unknown - Univ ers ty to See comments 2- ity of adverse 00:00: [place] reaction 00 Medical s Branch Latex Propensi Active Unknown - Unive rs ty to See comments 2- ity of adverse 00:00: [place] reaction 00 Medical s Branch Lidocain Propensi Active Unknown - Uni vers e ty to See comments 2- ity of adverse 00:00: [place] reaction 00 Medical s Branch Nickel Propensi Active Unknown - Unive rs ty to See comments 2- ity of adverse 00:00: [place] reaction 00 Medical s Branch Onion Propensi Active Unknown - Unive rs ty to See comments 2- ity of adverse 00:00: [place] reaction 00 Medical s Branch Prochlor Propensi Active Unknown - Uni vers perazine ty to See comments 2- it y of adverse 00:00: [place] reaction 00 Medical s Branch Propoxyp Propensi Active Unknown - Uni vers hene ty to See comments 2- ity of adverse 00:00: [place] reaction 00 Medical s Branch Risedron Propensi Active Unknown - Uni vers ate ty to See comments 2-02 ity of Sodium adverse 00:00: [place] reaction 00 Medical s Branch Scopolam Propensi Active Unknown - Uni vers ine ty to See comments 2- ity of adverse 00:00: [place] reaction 00 Medical s Branch Tubercul Propensi Active Unknown - Uni vers in ty to See comments 2- ity of adverse 00:00: [place] reaction 00 Medical s Branch Wheat Propensi Active Unknown - Unive rs ty to See comments 2- ity of adverse 00:00: [place] reaction 00 Medical s Branch EUCALYPT DRUG Active 2015-0 MD MENDOZA INGREDI 08-26 Anderso 00:00: n 00 IODINATE Drug Active 2015-0 D Class 08-26 [facility] CONTRAST 00:00: n MEDIA 00 LATEX DRUG Active 2015-0 INGREDI 08-26 Anderso 00:00: n 00 LIDOCAIN DRUG Active 2015-0 MD Rod INGREDScottie 08-26 Anderso 00:00: n 00 MORPHINE DRUG Active 2015-0 INGREDI 08-26 Anderso 00:00: n 00 NICKEL DRUG Active 2015-0 INGREDI 08-26 Anderso 00:00: n 00 PROCHLOR DRUG Active 2015-0 MD PERAZINE INGREDI 2-02 Anderso 00:00: n 00 PROPOXYP DRUG Active 2015-0 MD HENE INGREDI 2-02 Anderso 00:00: n 00 RISEDRON DRUG Active 2015-0 MD ATE 2- Anderso 00:00: n 00 SCOPOLAM DRUG Active 2015-0 MD INE INGREDI 2-02 Anderso 00:00: n 00 TUBERCUL DRUG Active 2015-0 MD IN 2 Anderso 00:00: n 00 ALOE DRUG Active 2015-0 MD INGREDI 2-02 Anderso 00:00: n 00 BUPIVACA DRUG Active MD INE INGREDI 202 Anderso 00:00: n 00 EUCALYPT DRUG Active 2015- MD US INGREDI 2 Anderso 00:00: n 00 IODINATE Drug Active 2015-0 MD D Class 2-02 Anderso CONTRAST 00:00: n MEDIA 00 LATEX DRUG Active 2015- MD INGREDI 2 Anderso 00:00: n 00 LIDOCAIN DRUG Active 2015-0 MD E INGREDI 2 Anderso 00:00: n 00 MORPHINE DRUG Active 2015-0 MD INGREDI 2- Anderso 00:00: n 00 NICKEL DRUG Active 2015-0 MD INGREDI 2- Anderso 00:00: n 00 PROCHLOR DRUG Active 2015-0 MD PERAZINE INGREDI 2 Anderso 00:00: n 00 PROPOXYP DRUG Active 2015-0 MD HENE INGREDI 2 Anderso 00:00: n 00 RISEDRON DRUG Active 2015-0 MD ATE 2 Anderso 00:00: n 00 SCOPOLAM DRUG Active 2015-0 MD INE INGREDI 2-02 Anderso 00:00: n 00 TUBERCUL DRUG Active 2015-0 MD IN 2 Anderso 00:00: n 00 ALOE DRUG Active 2015-0 MD INGREDI 2-02 Anderso 00:00: n 00 BUPIVACA DRUG Active 2015-0 MD INE INGREDI 2-02 Anderso 00:00: n 00 EUCALYPT DRUG Active 2015-0 MD US INGREDI 202 Anderso 00:00: n 00 IODINATE Drug Active 2015-0 MD D Class 2-02 Anderso CONTRAST 00:00: n MEDIA 00 ALOE DRUG Active 2015-0 MD INGREDI 2-02 Anderso 00:00: n 00 LATEX DRUG Active 2015-0 MD INGREDI 2- Anderso 00:00: n 00 LIDOCAIN DRUG Active 2015-0 MD E INGREDI 2- Anderso 00:00: n 00 MORPHINE DRUG Active 2015-0 MD INGREDI 2-02 Anderso 00:00: n 00 NICKEL DRUG Active 2015-0 MD INGREDI 2-02 Anderso 00:00: n 00 PROCHLOR DRUG Active 2015-0 MD PERAZINE INGREDI 2-02 Anderso 00:00: n 00 PROPOXYP DRUG Active 2015-0 MD HENE INGREDI 2 Anderso 00:00: n 00 RISEDRON DRUG Active 2015-0 MD ATE 08-26 Anderso 00:00: n 00 SCOPOLAM DRUG Active 2015-0 MD INE INGREDI 2 Anderso 00:00: n 00 TUBERCUL DRUG Active 2015-0 MD IN 08-26 Anderso 00:00: n 00 BUPIVACA DRUG Active 2015-0 MD INE INGREDI 2 Anderso 00:00: n 00 ALOE DRUG Active 2015-0 MD INGREDI 2- Anderso 00:00: n 00 BUPIVACA DRUG Active 2015-0 MD INE INGREDI 2 Anderso 00:00: n 00 EUCALYPT DRUG Active 2015-0 MD US INGREDI 2- Anderso 00:00: n 00 IODINATE Drug Active 2015-0 MD D Class 08-26 Anderso CONTRAST 00:00: n MEDIA 00 LATEX DRUG Active 2015-0 MD INGREDI 2 Anderso 00:00: n 00 LIDOCAIN DRUG Active 2015-0 MD E INGREDI 2-02 Anderso 00:00: n 00 MORPHINE DRUG Active 2015-0 MD INGREDI 2- Anderso 00:00: n 00 NICKEL DRUG Active 2015-0 MD INGREDI 2-02 Anderso 00:00: n 00 PROCHLOR DRUG Active 2015-0 MD PERAZINE INGREDI 2-02 Anderso 00:00: n 00 PROPOXYP DRUG Active 2015-0 MD HENE INGREDI 2-02 Anderso 00:00: n 00 EGG DRUG Active 2015-0 MD INGREDI 2-02 Anderso 00:00: n 00 RISEDRON DRUG Active 2015-0 MD ATE 2- Anderso 00:00: n 00 SCOPOLAM DRUG Active 2015-0 MD INE INGREDI 2-02 Anderso 00:00: n 00 TUBERCUL DRUG Active 2015-0 MD IN 2 Anderso 00:00: n 00 ALOE DRUG Active 2015-0 MD INGREDI 2 Anderso 00:00: n 00 BUPIVACA DRUG Active 2015- MD INE INGREDI 2 Anderso 00:00: n 00 EUCALYPT DRUG Active 2015-0 MD US INGREDI 2 Anderso 00:00: n 00 IODINATE Drug Active 2015- MD D Class 2- Anderso CONTRAST 00:00: n MEDIA 00 LATEX DRUG Active 2015- MD INGREDI 2 Anderso 00:00: n 00 LIDOCAIN DRUG Active 2015-0 MD E INGREDI 2 Anderso 00:00: n 00 EUCALYPT DRUG Active 2015-0 MD US INGREDI 2 Anderso 00:00: n 00 MORPHINE DRUG Active 2015-0 MD INGREDI 2 Anderso 00:00: n 00 NICKEL DRUG Active 2015- MD INGREDI 2 Anderso 00:00: n 00 PROCHLOR DRUG Active 2015-0 MD PERAZINE INGREDI 2 Anderso 00:00: n 00 PROPOXYP DRUG Active 2015-0 MD HENE INGREDI 2 Anderso 00:00: n 00 RISEDRON DRUG Active 2015-0 MD ATE 08-26 Anderso 00:00: n 00 SCOPOLAM DRUG Active 2015-0 MD INE INGREDI 2- Anderso 00:00: n 00 TUBERCUL DRUG Active 2015-0 MD IN 08-26 Anderso 00:00: n 00 ALOE DRUG Active 2015-0 MD INGREDI 2-02 Anderso 00:00: n 00 BUPIVACA DRUG Active 2015-0 MD INE INGREDI 2-02 Anderso 00:00: n 00 EUCALYPT DRUG Active 2015-0 MD US INGREDI 202 Anderso 00:00: n 00 WHEAT DRUG Active 2015-0 MD INGREDI 2- Anderso 00:00: n 00 IODINATE Drug Active 2015-0 MD D Class 2-02 Anderso CONTRAST 00:00: n MEDIA 00 LATEX DRUG Active 2015-0 MD INGREDI 2 Anderso 00:00: n 00 LIDOCAIN DRUG Active 2015-0 MD E INGREDI 2- Anderso 00:00: n 00 MORPHINE DRUG Active 2015-0 MD INGREDI 2- Anderso 00:00: n 00 NICKEL DRUG Active 2015-0 MD INGREDI 2 Anderso 00:00: n 00 PROCHLOR DRUG Active 2015-0 MD PERAZINE INGREDI 2 Anderso 00:00: n 00 PROPOXYP DRUG Active 2015-0 MD HENE INGREDI 2 Anderso 00:00: n 00 RISEDRON DRUG Active 2015-0 MD ATE 08-26 Anderso 00:00: n 00 SCOPOLAM DRUG Active 2015-0 MD INE INGREDI 2 Anderso 00:00: n 00 TUBERCUL DRUG Active 2015-0 MD IN 08-26 Anderso 00:00: n 00 IODINATE Drug Active 2015-0 MD D Class 2- Anderso CONTRAST 00:00: n MEDIA 00 ALOE DRUG Active 2015-0 MD INGREDI 2 Anderso 00:00: n 00 BUPIVACA DRUG Active 2015-0 MD INE INGREDI 2 Anderso 00:00: n 00 EUCALYPT DRUG Active 2015-0 MD US INGREDI 2 Anderso 00:00: n 00 IODINATE Drug Active 2015-0 MD D Class 2-02 Anderso CONTRAST 00:00: n MEDIA 00 LATEX DRUG Active 2015-0 MD INGREDI 2 Anderso 00:00: n 00 LIDOCAIN DRUG Active 2015-0 MD E INGREDI 2 Anderso 00:00: n 00 MORPHINE DRUG Active 2015-0 MD INGREDI 2 Anderso 00:00: n 00 NICKEL DRUG Active 2015-0 MD INGREDI 2-02 Anderso 00:00: n 00 PROCHLOR DRUG Active 2015-0 MD PERAZINE INGREDI 2 Anderso 00:00: n 00 LACTOSE DRUG Active 2015-0 MD INGREDI 202 Anderso 00:00: n 00 PROPOXYP DRUG Active 2015-0 MD HENE INGREDI 2 Anderso 00:00: n 00 RISEDRON DRUG Active 2015-0 MD ATE 2- Anderso 00:00: n 00 SCOPOLAM DRUG Active 2015-0 MD INE INGREDI 2- Anderso 00:00: n 00 TUBERCUL DRUG Active 2015-0 MD IN 2 Anderso 00:00: n 00 ALOE DRUG Active 2015-0 MD INGREDI 2- Anderso 00:00: n 00 BUPIVACA DRUG Active 2015-0 MD INE INGREDI 2 Anderso 00:00: n 00 EUCALYPT DRUG Active 2015-0 MD US INGREDI 2 Anderso 00:00: n 00 IODINATE Drug Active 2015-0 MD D Class 2- Anderso CONTRAST 00:00: n MEDIA 00 LATEX DRUG Active 2015-0 MD INGREDI 2 Anderso 00:00: n 00 LATEX DRUG Active 2015-0 MD INGREDI 2 Anderso 00:00: n 00 LIDOCAIN DRUG Active 2015-0 MD E INGREDI 2 Anderso 00:00: n 00 MORPHINE DRUG Active 2015-0 MD INGREDI 2 Anderso 00:00: n 00 NICKEL DRUG Active 2015-0 MD INGREDI 2 Anderso 00:00: n 00 PROCHLOR DRUG Active 2015-0 MD PERAZINE INGREDI 2 Anderso 00:00: n 00 PROPOXYP DRUG Active 2015-0 MD HENE INGREDI 2 Anderso 00:00: n 00 RISEDRON DRUG Active 2015-0 MD ATE 08-26 Anderso 00:00: n 00 SCOPOLAM DRUG Active 2015-0 MD INE INGREDI 2 Anderso 00:00: n 00 TUBERCUL DRUG Active 2015-0 MD IN 08-26 Anderso 00:00: n 00 ALOE DRUG Active 2015-0 MD INGREDI 2- Anderso 00:00: n 00 BUPIVACA DRUG Active 2015-0 MD INE INGREDI 2 Anderso 00:00: n 00 LIDOCAIN DRUG Active 2015-0 MD E INGREDI 2- Anderso 00:00: n 00 EUCALYPT DRUG Active 2015-0 MD US INGREDI 202 Anderso 00:00: n 00 IODINATE Drug Active 2015-0 MD D Class 2- Anderso CONTRAST 00:00: n MEDIA 00 LATEX DRUG Active 2015-0 MD INGREDI 2 Anderso 00:00: n 00 LIDOCAIN DRUG Active 2015-0 MD E INGREDI 2 Anderso 00:00: n 00 MORPHINE DRUG Active 2015-0 MD INGREDI 2 Anderso 00:00: n 00 NICKEL DRUG Active 2015-0 MD INGREDI 2 Anderso 00:00: n 00 PROCHLOR DRUG Active 2015-0 MD PERAZINE INGREDI 2 Anderso 00:00: n 00 PROPOXYP DRUG Active 2015-0 MD HENE INGREDI 2 Anderso 00:00: n 00 RISEDRON DRUG Active 2015-0 MD ATE 08-26 Anderso 00:00: n 00 SCOPOLAM DRUG Active 2015- MD INE INGREDI 2 Anderso 00:00: n 00 MORPHINE DRUG Active 2015-0 MD INGREDI 2 Anderso 00:00: n 00 TUBERCUL DRUG Active 2015-0 MD IN 08-26 Anderso 00:00: n 00 ALOE DRUG Active 2015- MD INGREDI 2 Anderso 00:00: n 00 BUPIVACA DRUG Active 2015-0 MD INE INGREDI 2 Anderso 00:00: n 00 EUCALYPT DRUG Active 2015-0 MD US INGREDI 2 Anderso 00:00: n 00 IODINATE Drug Active 2015-0 MD D Class 08-26 Anderso CONTRAST 00:00: n MEDIA 00 LATEX DRUG Active 2015-0 MD INGREDI 2 Anderso 00:00: n 00 LIDOCAIN DRUG Active 2015-0 MD E INGREDI 2 Anderso 00:00: n 00 MORPHINE DRUG Active 2015-0 MD INGREDI 2 Anderso 00:00: n 00 NICKEL DRUG Active 2015-0 MD INGREDI 202 Anderso 00:00: n 00 PROCHLOR DRUG Active 2015-0 MD PERAZINE INGREDI 2 Anderso 00:00: n 00 NICKEL DRUG Active 2015-0 MD INGREDI 202 Anderso 00:00: n 00 PROPOXYP DRUG Active 2015-0 MD HENE INGREDI 202 Anderso 00:00: n 00 RISEDRON DRUG Active 2015-0 MD ATE 2 Anderso 00:00: n 00 SCOPOLAM DRUG Active 2015-0 MD INE INGREDI 2-02 Anderso 00:00: n 00 TUBERCUL DRUG Active 2015-0 MD IN 08-26 Anderso 00:00: n 00 ALOE DRUG Active 2015-0 MD INGREDI 2- Anderso 00:00: n 00 BUPIVACA DRUG Active 2015-0 MD INE INGREDI 2 Anderso 00:00: n 00 EUCALYPT DRUG Active 2015-0 MD US INGREDI 08-26 Anderso 00:00: n 00 IODINATE Drug Active 2015-0 MD D Class 2-02 Anderso CONTRAST 00:00: n MEDIA 00 LATEX DRUG Active 2015-0 MD INGREDI 2 Anderso 00:00: n 00 LIDOCAIN DRUG Active 2015-0 MD E INGREDI 2 Anderso 00:00: n 00 ONION DRUG Active 2015-0 MD INGREDI 2 Anderso 00:00: n 00 MORPHINE DRUG Active 2015-0 MD INGREDI 2 Anderso 00:00: n 00 NICKEL DRUG Active 2015-0 MD INGREDI 2 Anderso 00:00: n 00 PROCHLOR DRUG Active 2015-0 MD PERAZINE INGREDI 08-26 Anderso 00:00: n 00 PROPOXYP DRUG Active 2015-0 MD HENE INGREDI 08-26 Anderso 00:00: n 00 RISEDRON DRUG Active 2015-0 MD ATE 08-26 Anderso 00:00: n 00 SCOPOLAM DRUG Active 2015-0 MD INE INGREDI 08-26 Anderso 00:00: n 00 TUBERCUL DRUG Active 2015-0 MD IN 08-26 Anderso 00:00: n 00 ALOE DRUG Active 2015-0 MD INGREDI 2 Anderso 00:00: n 00 BUPIVACA DRUG Active 2015-0 MD INE INGREDI 2 Anderso 00:00: n 00 PROCHLOR DRUG Active 2015-0 MD PERAZINE INGREDI 2 Anderso 00:00: n 00 EUCALYPT DRUG Active 2015-0 MD US INGREDI 2 Anderso 00:00: n 00 IODINATE Drug Active 2015-0 MD D Class 2- Anderso CONTRAST 00:00: n MEDIA 00 LATEX DRUG Active 2015-0 MD INGREDI 2 Anderso 00:00: n 00 LIDOCAIN DRUG Active 2015-0 MD E INGREDI 2 Anderso 00:00: n 00 MORPHINE DRUG Active 2015-0 MD INGREDI 2 Anderso 00:00: n 00 NICKEL DRUG Active 2015-0 MD INGREDI 2- Anderso 00:00: n 00 PROCHLOR DRUG Active 2015-0 MD PERAZINE INGREDI 2 Anderso 00:00: n 00 PROPOXYP DRUG Active 2015-0 MD HENE INGREDI 2 Anderso 00:00: n 00 RISEDRON DRUG Active 2015-0 MD ATE 2 Anderso 00:00: n 00 SCOPOLAM DRUG Active MD INE INGREDI 2 Anderso 00:00: n 00 PROPOXYP DRUG Active 2015-0 MD HENE INGREDI 2 Anderso 00:00: n 00 TUBERCUL DRUG Active 2015-0 MD IN 08-26 Anderso 00:00: n 00 ALOE DRUG Active MD INGREDI 2 Anderso 00:00: n 00 BUPIVACA DRUG Active MD INE INGREDI 2 Anderso 00:00: n 00 EUCALYPT DRUG Active 2015-0 MD US INGREDI 2 Anderso 00:00: n 00 IODINATE Drug Active 2015-0 MD D Class 08-26 Anderso CONTRAST 00:00: n MEDIA 00 LATEX DRUG Active 2015-0 MD INGREDI 2 Anderso 00:00: n 00 LIDOCAIN DRUG Active 2015-0 MD E INGREDI 08-26 Anderso 00:00: n 00 MORPHINE DRUG Active 2015-0 MD INGREDI 2 Anderso 00:00: n 00 NICKEL DRUG Active 2015-0 MD INGREDI 2 Anderso 00:00: n 00 RISEDRON DRUG Active 2015-0 MD ATE 2 Anderso 00:00: n 00 PROCHLOR DRUG Active 2015-0 MD PERAZINE INGREDI 2 Anderso 00:00: n 00 PROPOXYP DRUG Active 2015-0 MD HENE INGREDI 202 Anderso 00:00: n 00 RISEDRON DRUG Active 2015-0 MD ATE 2 Anderso 00:00: n 00 SCOPOLAM DRUG Active 2015-0 MD INE INGREDI 2 Anderso 00:00: n 00 TUBERCUL DRUG Active 2015-0 MD IN 2- Anderso 00:00: n 00 ALOE DRUG Active 2015-0 MD INGREDI 2- Anderso 00:00: n 00 BUPIVACA DRUG Active 2015-0 MD INE INGREDI 2- Anderso 00:00: n 00 EUCALYPT DRUG Active 2015-0 MD US INGREDI 2 Anderso 00:00: n 00 IODINATE Drug Active 2015-0 MD D Class 2-02 Anderso CONTRAST 00:00: n MEDIA 00 SCOPOLAM DRUG Active 2015-0 MD INE INGREDI 2- Anderso 00:00: n 00 LATEX DRUG Active 2015-0 MD INGREDI 2- Anderso 00:00: n 00 LIDOCAIN DRUG Active 2015-0 MD E INGREDI 2 Anderso 00:00: n 00 MORPHINE DRUG Active 2015-0 MD INGREDI 2 Anderso 00:00: n 00 NICKEL DRUG Active 2015-0 MD INGREDI 2 Anderso 00:00: n 00 PROCHLOR DRUG Active 2015-0 MD PERAZINE INGREDI 2 Anderso 00:00: n 00 PROPOXYP DRUG Active 2015-0 MD HENE INGREDI 08-26 Anderso 00:00: n 00 RISEDRON DRUG Active 2015-0 MD ATE 08-26 Anderso 00:00: n 00 SCOPOLAM DRUG Active 2015-0 MD INE INGREDI 2- Anderso 00:00: n 00 TUBERCUL DRUG Active 2015-0 MD IN 08-26 Anderso 00:00: n 00 TUBERCUL DRUG Active 2015-0 MD IN 08-26 Anderso 00:00: n 00 ALOE DRUG Active 2015-0 MD INGREDI 2- Anderso 00:00: n 00 BUPIVACA DRUG Active 2015-0 MD INE INGREDI 2- Anderso 00:00: n 00 EUCALYPT DRUG Active 2015-0 MD US INGREDI 2 Anderso 00:00: n 00 IODINATE Drug Active 2015-0 MD D Class 2-02 Anderso CONTRAST 00:00: n MEDIA 00 LATEX DRUG Active 2015-0 MD INGREDI 2- Anderso 00:00: n 00 LIDOCAIN DRUG Active 2015-0 MD E INGREDI 2-02 Anderso 00:00: n 00 MORPHINE DRUG Active 2015-0 MD INGREDI 2 Anderso 00:00: n 00 NICKEL DRUG Active 2015-0 MD INGREDI 2- Anderso 00:00: n 00 PROCHLOR DRUG Active 2015-0 MD PERAZINE INGREDI 2 Anderso 00:00: n 00 PROPOXYP DRUG Active 2015-0 MD HENE INGREDI 08-26 Anderso 00:00: n 00 RISEDRON DRUG Active 2015-0 MD ATE 08-26 Anderso 00:00: n 00 SCOPOLAM DRUG Active 2015-0 MD INE INGREDI 2 Anderso 00:00: n 00 TUBERCUL DRUG Active 2015-0 MD IN 08-26 Anderso 00:00: n 00 ALOE DRUG Active 2015-0 MD INGREDI 2 Anderso 00:00: n 00 BUPIVACA DRUG Active 2015-0 MD INE INGREDI 08-26 Anderso 00:00: n 00 EUCALYPT DRUG Active 2015-0 MD US INGREDI 08-26 Anderso 00:00: n 00 IODINATE Drug Active 2015-0 MD D Class 08-26 Anderso CONTRAST 00:00: n MEDIA 00 LATEX DRUG Active 2015-0 MD INGREDI 08-26 Anderso 00:00: n 00 LIDOCAIN DRUG Active 2015-0 MD E INGREDI 08-26 Anderso 00:00: n 00 ALOE DRUG Active 2015-0 MD INGREDI 2 Anderso 00:00: n 00 MORPHINE DRUG Active 2015-0 MD INGREDI 08-26 Anderso 00:00: n 00 NICKEL DRUG Active 2015-0 MD INGREDI 2 Anderso 00:00: n 00 PROCHLOR DRUG Active 2015-0 MD PERAZINE INGREDI 2 Anderso 00:00: n 00 PROPOXYP DRUG Active 2015-0 MD HENE INGREDI 2 Anderso 00:00: n 00 RISEDRON DRUG Active 2015-0 MD ATE 08-26 Anderso 00:00: n 00 SCOPOLAM DRUG Active 2015-0 MD INE INGREDI 202 Anderso 00:00: n 00 TUBERCUL DRUG Active 2015-0 MD IN 08-26 Anderso 00:00: n 00 ALOE DRUG Active 2015-0 MD INGREDI 202 Anderso 00:00: n 00 BUPIVACA DRUG Active 2015-0 MD INE INGREDI 2 Anderso 00:00: n 00 BUPIVACA DRUG Active 2015-0 MD INE INGREDI 2 Anderso 00:00: n 00 EUCALYPT DRUG Active 2015-0 MD US INGREDI 2 Anderso 00:00: n 00 IODINATE Drug Active 2015-0 MD D Class 2-02 Anderso CONTRAST 00:00: n MEDIA 00 LATEX DRUG Active 2015-0 MD INGREDI 2 Anderso 00:00: n 00 LIDOCAIN DRUG Active 2015-0 MD E INGREDI 2 Anderso 00:00: n 00 MORPHINE DRUG Active 2015-0 MD INGREDI 2 Anderso 00:00: n 00 NICKEL DRUG Active 2015-0 MD INGREDI 2 Anderso 00:00: n 00 PROCHLOR DRUG Active 2015-0 MD PERAZINE INGREDI 2 Anderso 00:00: n 00 PROPOXYP DRUG Active 2015-0 MD HENE INGREDI 08-26 Anderso 00:00: n 00 RISEDRON DRUG Active 2015-0 MD ATE 08-26 Anderso 00:00: n 00 SCOPOLAM DRUG Active 2015-0 MD INE INGREDI 2 Anderso 00:00: n 00 EUCALYPT DRUG Active 2015-0 MD US INGREDI 2 Anderso 00:00: n 00 TUBERCUL DRUG Active 2015-0 MD IN 08-26 Anderso 00:00: n 00 ALOE DRUG Active 2015-0 MD INGREDI 2 Anderso 00:00: n 00 BUPIVACA DRUG Active 2015-0 MD INE INGREDI 2 Anderso 00:00: n 00 EUCALYPT DRUG Active 2015-0 MD US INGREDI 2 Anderso 00:00: n 00 IODINATE Drug Active 2015-0 MD D Class 2-02 Anderso CONTRAST 00:00: n MEDIA 00 LATEX DRUG Active 2015-0 MD INGREDI 2 Anderso 00:00: n 00 LIDOCAIN DRUG Active 2015-0 MD E INGREDI 202 Anderso 00:00: n 00 MORPHINE DRUG Active 2015-0 MD INGREDI 2 Anderso 00:00: n 00 NICKEL DRUG Active 2015-0 MD INGREDI 2- Anderso 00:00: n 00 PROCHLOR DRUG Active 2015-0 MD PERAZINE INGREDI 2 Anderso 00:00: n 00 IODINATE Drug Active 2015-0 MD D Class 2-02 Anderso CONTRAST 00:00: n MEDIA 00 PROPOXYP DRUG Active 2015-0 MD HENE INGREDI 08-26 Anderso 00:00: n 00 RISEDRON DRUG Active 2015-0 MD ATE 08-26 Anderso 00:00: n 00 SCOPOLAM DRUG Active 2015-0 MD INE INGREDI 2 Anderso 00:00: n 00 TUBERCUL DRUG Active MD IN 08-26 Anderso 00:00: n 00 ALOE DRUG Active 2015- MD INGREDI 08-26 Anderso 00:00: n 00 BUPIVACA DRUG Active 2015- MD INE INGREDI 08-26 Anderso 00:00: n 00 EUCALYPT DRUG Active 2015- MD US INGREDI 08-26 Anderso 00:00: n 00 IODINATE Drug Active 2015- MD D Class 2- Anderso CONTRAST 00:00: n MEDIA 00 LATEX DRUG Active 2015- MD INGREDI 08-26 Anderso 00:00: n 00 LIDOCAIN DRUG Active 2015- MD E INGREDI 08-26 Anderso 00:00: n 00 LATEX DRUG Active 2015-0 MD INGREDI 08-26 Anderso 00:00: n 00 MORPHINE DRUG Active 2015-0 MD INGREDI 08-26 Anderso 00:00: n 00 NICKEL DRUG Active 2015- MD INGREDI 08-26 Anderso 00:00: n 00 PROCHLOR DRUG Active 2015-0 MD PERAZINE INGREDI 08-26 Anderso 00:00: n 00 PROPOXYP DRUG Active 2015-0 MD HENE INGREDI 08-26 Anderso 00:00: n 00 RISEDRON DRUG Active 2015-0 MD ATE 08-26 Anderso 00:00: n 00 SCOPOLAM DRUG Active 2015-0 MD INE INGREDI 08-26 Anderso 00:00: n 00 TUBERCUL DRUG Active 2015-0 MD IN 08-26 Ando 00:00: n 00 ALOE DRUG Active 2015-0 MD INGREDI 2 Anderso 00:00: n 00 BUPIVACA DRUG Active 2015-0 MD INE INGREDI 202 Anderso 00:00: n 00 EUCALYPT DRUG Active 2015-0 MD US INGREDI 2 Anderso 00:00: n 00 LIDOCAIN DRUG Active 2015-0 MD E INGREDI 2 Anderso 00:00: n 00 IODINATE Drug Active 2015-0 MD D Class 2-02 Anderso CONTRAST 00:00: n MEDIA 00 LATEX DRUG Active 2015-0 MD INGREDI 2 Anderso 00:00: n 00 LIDOCAIN DRUG Active 2015-0 MD E INGREDI 2 Anderso 00:00: n 00 MORPHINE DRUG Active 2015-0 MD INGREDI 2 Anderso 00:00: n 00 NICKEL DRUG Active 2015-0 MD INGREDI 2 Anderso 00:00: n 00 PROCHLOR DRUG Active 2015-0 MD PERAZINE INGREDI 2 Anderso 00:00: n 00 PROPOXYP DRUG Active 2015-0 MD HENE INGREDI 08-26 Anderso 00:00: n 00 RISEDRON DRUG Active 2015-0 MD ATE 08-26 Anderso 00:00: n 00 SCOPOLAM DRUG Active 2015-0 MD INE INGREDI 08-26 Anderso 00:00: n 00 TUBERCUL DRUG Active 2015-0 MD IN 08-26 Anderso 00:00: n 00 MORPHINE DRUG Active 2015-0 MD INGREDI 2 Anderso 00:00: n 00 ALOE DRUG Active 2015-0 MD INGREDI 2 Anderso 00:00: n 00 BUPIVACA DRUG Active 2015-0 MD INE INGREDI 08-26 Anderso 00:00: n 00 EUCALYPT DRUG Active 2015-0 MD US INGREDI 2 Anderso 00:00: n 00 IODINATE Drug Active 2015-0 MD D Class 2- Anderso CONTRAST 00:00: n MEDIA 00 LATEX DRUG Active 2015-0 MD INGREDI 2 Anderso 00:00: n 00 LIDOCAIN DRUG Active 2015-0 MD E INGREDI 2 Anderso 00:00: n 00 MORPHINE DRUG Active 2015-0 MD INGREDI 2 Anderso 00:00: n 00 NICKEL DRUG Active 2015-0 MD INGREDI 2 Anderso 00:00: n 00 PROCHLOR DRUG Active 2015-0 MD PERAZINE INGREDI 2- Anderso 00:00: n 00 NICKEL DRUG Active 2015-0 MD INGREDI 2- Anderso 00:00: n 00 PROPOXYP DRUG Active 2015-0 MD HENE INGREDI 2 Anderso 00:00: n 00 RISEDRON DRUG Active 2015-0 MD ATE 2- Anderso 00:00: n 00 SCOPOLAM DRUG Active 2015-0 MD INE INGREDI 2 Anderso 00:00: n 00 TUBERCUL DRUG Active 2015-0 MD IN 2 Anderso 00:00: n 00 ALOE DRUG Active 2015-0 MD INGREDI 2 Anderso 00:00: n 00 BUPIVACA DRUG Active 2015-0 MD INE INGREDI 2 Anderso 00:00: n 00 EUCALYPT DRUG Active 2015-0 MD US INGREDI 2 Anderso 00:00: n 00 IODINATE Drug Active 2015-0 MD D Class 08-26 Anderso CONTRAST 00:00: n MEDIA 00 LATEX DRUG Active 2015-0 MD INGREDI 2 Anderso 00:00: n 00 PROCHLOR DRUG Active 2015-0 MD PERAZINE INGREDI 08-26 Anderso 00:00: n 00 LIDOCAIN DRUG Active 2015-0 MD E INGREDI 2 Anderso 00:00: n 00 MORPHINE DRUG Active 2015-0 MD INGREDI 2 Anderso 00:00: n 00 NICKEL DRUG Active 2015-0 MD INGREDI 2 Anderso 00:00: n 00 PROCHLOR DRUG Active 2015-0 MD PERAZINE INGREDI 2 Anderso 00:00: n 00 PROPOXYP DRUG Active 2015-0 MD HENE INGREDI 2 Anderso 00:00: n 00 RISEDRON DRUG Active 2015-0 MD ATE 08-26 Anderso 00:00: n 00 SCOPOLAM DRUG Active 2015-0 MD INE INGREDI 2 Anderso 00:00: n 00 TUBERCUL DRUG Active 2015-0 MD IN 08-26 Anderso 00:00: n 00 ALOE DRUG Active 2015-0 MD INGREDI 2 Anderso 00:00: n 00 BUPIVACA DRUG Active 2015-0 MD INE INGREDI 2 Anderso 00:00: n 00 PROPOXYP DRUG Active 2015-0 MD HENE INGREDI 2-02 Anderso 00:00: n 00 EUCAL[place] DRUG Active 2015-0 MD US INGREDI 2- Anderso 00:00: n 00 IODINATE Drug Active 2015-0 MD D Class 2-02 Anderso CONTRAST 00:00: n MEDIA 00 LATEX DRUG Active 2015-0 MD INGREDI 2 Anderso 00:00: n 00 LIDOCAIN DRUG Active 2015-0 MD E INGREDI 2 Anderso 00:00: n 00 MORPHINE DRUG Active 2015-0 MD INGREDI 2 Anderso 00:00: n 00 NICKEL DRUG Active 2015- MD INGREDI 2- Anderso 00:00: n 00 PROCHLOR DRUG Active 2015- MD PERAZINE INGREDI 2 Anderso 00:00: n 00 PROPOXYP DRUG Active 2015-0 MD HENE INGREDI 2 Anderso 00:00: n 00 RISEDRON DRUG Active 2015-0 MD ATE 2 Anderso 00:00: n 00 SCOPOLAM DRUG Active 2015-0 MD INE INGREDI 2 Anderso 00:00: n 00 RISEDRON DRUG Active 2015-0 MD ATE 2- Anderso 00:00: n 00 TUBERCUL DRUG Active 2015-0 MD IN 2- Anderso 00:00: n 00 ALOE DRUG Active 2015-0 MD INGREDI 2-02 Anderso 00:00: n 00 BUPIVACA DRUG Active 2015-0 MD INE INGREDI 2 Anderso 00:00: n 00 EUCAL[place] DRUG Active 2015-0 MD US INGREDI 2 Anderso 00:00: n 00 IODINATE Drug Active 2015-0 MD D Class 2-02 Anderso CONTRAST 00:00: n MEDIA 00 LATEX DRUG Active 2015-0 MD INGREDI 2-02 Anderso 00:00: n 00 LIDOCAIN DRUG Active 2015-0 MD E INGREDI 2-02 Anderso 00:00: n 00 MORPHINE DRUG Active 2015-0 MD INGREDI 2-02 Anderso 00:00: n 00 NICKEL DRUG Active 2015-0 MD INGREDI 2-02 Anderso 00:00: n 00 SCOPOLAM DRUG Active 2015-0 MD INE INGREDI 2-02 Anderso 00:00: n 00 PROCHLOR DRUG Active 2015-0 MD PERAZINE INGREDI 08-26 Anderso 00:00: n 00 PROPOXYP DRUG Active 2015-0 MD HENE INGREDI 08-26 Anderso 00:00: n 00 RISEDRON DRUG Active 2015-0 MD ATE 08-26 Anderso 00:00: n 00 SCOPOLAM DRUG Active 2015-0 MD INE INGREDI 08-26 Anderso 00:00: n 00 TUBERCUL DRUG Active 2015-0 MD IN 08-26 Anderso 00:00: n 00 ALOE DRUG Active 2015-0 MD INGREDI 08-26 Anderso 00:00: n 00 BUPIVACA DRUG Active 2015- MD INE INGREDI 08-26 Anderso 00:00: n 00 EUCALYPT DRUG Active 2015-0 MD US INGREDI 08-26 Anderso 00:00: n 00 IODINATE Drug Active 2015-0 MD D Class 08-26 Anderso CONTRAST 00:00: n MEDIA 00 TUBERCUL DRUG Active 2015-0 MD IN 08-26 Ando 00:00: n 00 LATEX DRUG Active 2015-0 MD INGREDI 08-26 Anderso 00:00: n 00 LIDOCAIN DRUG Active 2015-0 MD E INGREDI 08-26 Anderso 00:00: n 00 MORPHINE DRUG Active 2015-0 MD INGREDI 08-26 Anderso 00:00: n 00 NICKEL DRUG Active 2015-0 MD INGREDI 08-26 Anderso 00:00: n 00 PROCHLOR DRUG Active 2015-0 MD PERAZINE INGREDI 08-26 Anderso 00:00: n 00 PROPOXYP DRUG Active 2015-0 MD HENE INGREDI 08-26 Anderso 00:00: n 00 RISEDRON DRUG Active 2015-0 MD ATE 08-26 Anderso 00:00: n 00 SCOPOLAM DRUG Active 2015-0 MD INE INGREDI 08-26 Anderso 00:00: n 00 TUBERCUL DRUG Active 2015-0 MD IN 08-26 Anderso 00:00: n 00 ALOE DRUG Active 2015-0 MD INGREDI 08-26 Anderso 00:00: n 00 BUPIVACA DRUG Active 2015-0 MD INE INGREDI 08-26 Anderso 00:00: n 00 EUCALYPT DRUG Active 2016-0 MD US INGREDI 2-02 Anderso 00:00: n 00 IODINATE Drug Active 2015-0 MD D Class 2-02 Anderso CONTRAST 00:00: n MEDIA 00 LATEX DRUG Active 2015-0 MD INGREDI 2- Anderso 00:00: n 00 LIDOCAIN DRUG Active 2015-0 MD E INGREDI 2-02 Anderso 00:00: n 00 MORPHINE DRUG Active 2015-0 MD INGREDI 2- Anderso 00:00: n 00 NICKEL DRUG Active 2015-0 MD INGREDI 2 Anderso 00:00: n 00 PROCHLOR DRUG Active 2015-0 MD PERAZINE INGREDI 2 Anderso 00:00: n 00 PROPOXYP DRUG Active 2015-0 MD HENE INGREDI 2 Anderso 00:00: n 00 ALOE DRUG Active 2015-0 MD INGREDI 2- Anderso 00:00: n 00 RISEDRON DRUG Active 2015-0 MD ATE 08-26 Anderso 00:00: n 00 SCOPOLAM DRUG Active 2015-0 MD INE INGREDI 2 Anderso 00:00: n 00 TUBERCUL DRUG Active 2015-0 MD IN - Anderso 00:00: n 00 ALOE DRUG Active 2015-0 MD INGREDI 2 Anderso 00:00: n 00 BUPIVACA DRUG Active 2015-0 MD INE INGREDI 2 Anderso 00:00: n 00 EUCALYPT DRUG Active 2015-0 MD US INGREDI 2 Anderso 00:00: n 00 IODINATE Drug Active 2015-0 MD D Class 2-02 Anderso CONTRAST 00:00: n MEDIA 00 LATEX DRUG Active 2015-0 MD INGREDI 2-02 Anderso 00:00: n 00 LIDOCAIN DRUG Active 2015-0 MD E INGREDI 2-02 Anderso 00:00: n 00 BUPIVACA DRUG Active 2015-0 MD INE INGREDI 2-02 Anderso 00:00: n 00 MORPHINE DRUG Active 2015-0 MD INGREDI 2-02 Anderso 00:00: n 00 NICKEL DRUG Active 2015-0 MD INGREDI 2-02 Anderso 00:00: n 00 PROCHLOR DRUG Active 2015-0 MD PERAZINE INGREDI 2-02 Anderso 00:00: n 00 PROPOXYP DRUG Active 2016-0 MD HENE INGREDI 202 Anderso 00:00: n 00 RISEDRON DRUG Active 2015- MD ATE 2- Anderso 00:00: n 00 SCOPOLAM DRUG Active 2015- MD INE INGREDI 2 Anderso 00:00: n 00 TUBERCUL DRUG Active 2015-0 MD IN 08-26 Anderso 00:00: n 00 ALOE DRUG Active 2015- MD INGREDI 2 Anderso 00:00: n 00 BUPIVACA DRUG Active MD INE INGREDI 2 Anderso 00:00: n 00 EUCALYPT DRUG Active MD US INGREDI 2 Anderso 00:00: n 00 EUCALYPT DRUG Active 2015- MD US INGREDI 08-26 Anderso 00:00: n 00 IODINATE Drug Active 2015- MD D Class 2-02 Anderso CONTRAST 00:00: n MEDIA 00 LATEX DRUG Active MD INGREDI 2 Anderso 00:00: n 00 LIDOCAIN DRUG Active MD E INGREDI 2 Anderso 00:00: n 00 MORPHINE DRUG Active 2015- MD INGREDI 2 Anderso 00:00: n 00 NICKEL DRUG Active 2015- MD INGREDI 2 Anderso 00:00: n 00 PROCHLOR DRUG Active MD PERAZINE INGREDI 08-26 Anderso 00:00: n 00 PROPOXYP DRUG Active MD HENE INGREDI 08-26 Anderso 00:00: n 00 RISEDRON DRUG Active 2015- MD ATE 08-26 Anderso 00:00: n 00 SCOPOLAM DRUG Active 2015-0 MD INE INGREDI 2 Anderso 00:00: n 00 TUBERCUL DRUG Active 2015-0 MD IN 08-26 Anderso 00:00: n 00 IODINATE Drug Active 2015-0 MD D Class 2-02 Anderso CONTRAST 00:00: n MEDIA 00 ALOE DRUG Active 2015-0 MD INGREDI 2-02 Anderso 00:00: n 00 BUPIVACA DRUG Active 2015-0 MD INE INGREDI 2 Anderso 00:00: n 00 EUCALYPT DRUG Active 2015-0 MD US INGREDI 2 Anderso 00:00: n 00 IODINATE Drug Active 2015-0 MD D Class 2 Anderso CONTRAST 00:00: n MEDIA 00 LATEX DRUG Active 2015-0 MD INGREDI 2 Anderso 00:00: n 00 LIDOCAIN DRUG Active 2015-0 MD E INGREDI 2 Anderso 00:00: n 00 MORPHINE DRUG Active 2015-0 MD INGREDI 2 Anderso 00:00: n 00 NICKEL DRUG Active 2015-0 MD INGREDI 2 Anderso 00:00: n 00 PROCHLOR DRUG Active 2015-0 MD PERAZINE INGREDI 2 Anderso 00:00: n 00 LATEX DRUG Active 2015-0 MD INGREDI 2 Anderso 00:00: n 00 PROPOXYP DRUG Active 2015-0 MD HENE INGREDI 08-26 Anderso 00:00: n 00 RISEDRON DRUG Active 2015-0 MD ATE 08-26 Anderso 00:00: n 00 SCOPOLAM DRUG Active 2015-0 MD INE INGREDI 08-26 Anderso 00:00: n 00 TUBERCUL DRUG Active 2015-0 MD IN 08-26 Anderso 00:00: n 00 LIDOCAIN DRUG Active 2015-0 MD E INGREDI 08-26 Anderso 00:00: n 00 MORPHINE DRUG Active 2015-0 MD INGREDI 2 Anderso 00:00: n 00 NICKEL DRUG Active 2015-0 MD INGREDI 2 Anderso 00:00: n 00 PROCHLOR DRUG Active 2015-0 MD PERAZINE INGREDI 08-26 Anderso 00:00: n 00 PROPOXYP DRUG Active 2015-0 MD HENE INGREDI 08-26 Anderso 00:00: n 00 RISEDRON DRUG Active 2015-0 MD ATE 08-26 Anderso 00:00: n 00 SCOPOLAM DRUG Active 2015-0 MD INE INGREDI 08-26 Anderso 00:00: n 00 TUBERCUL DRUG Active 2015-0 MD IN 08-26 Anderso 00:00: n 00 ALOE DRUG Active 2015-0 MD INGREDI 2 Anderso 00:00: n 00 BUPIVACA DRUG Active 2015-0 MD INE INGREDI 2 Anderso 00:00: n 00 EUCAL[place] DRUG Active 2015-0 MD US INGREDI 2 Anderso 00:00: n 00 IODINATE Drug Active 2015-0 MD D Class 2-02 Anderso CONTRAST 00:00: n MEDIA 00 LATEX DRUG Active 2015-0 MD INGREDI 2-02 Anderso 00:00: n 00 LIDOCAIN DRUG Active 2015-0 MD E INGREDI 2-02 Anderso 00:00: n 00 MORPHINE DRUG Active 2015-0 MD INGREDI 2 Anderso 00:00: n 00 NICKEL DRUG Active 2015-0 MD INGREDI 2-02 Anderso 00:00: n 00 PROCHLOR DRUG Active 0 MD PERAZINE INGREDI 202 Anderso 00:00: n 00 PROPOXYP DRUG Active 2015-0 MD HENE INGREDI 2 Anderso 00:00: n 00 RISEDRON DRUG Active 2015-0 MD ATE 2 Anderso 00:00: n 00 SCOPOLAM DRUG Active 2015-0 MD INE INGREDI 2 Anderso 00:00: n 00 TUBERCUL DRUG Active 2015-0 MD IN 08-26 Anderso 00:00: n 00 ALOE DRUG Active 2015-0 MD INGREDI 2-02 Anderso 00:00: n 00 BUPIVACA DRUG Active 0 MD INE INGREDI 2 Anderso 00:00: n 00 EUCALYPT DRUG Active 2015-0 MD US INGREDI 2 Anderso 00:00: n 00 IODINATE Drug Active 2015-0 MD D Class 2-02 Anderso CONTRAST 00:00: n MEDIA 00 LATEX DRUG Active 2015-0 MD INGREDI 2 Anderso 00:00: n 00 LIDOCAIN DRUG Active 2015-0 MD E INGREDI 2-02 Anderso 00:00: n 00 MORPHINE DRUG Active 2015-0 MD INGREDI 2-02 Anderso 00:00: n 00 NICKEL DRUG Active 2015-0 MD INGREDI 2-02 Anderso 00:00: n 00 PROCHLOR DRUG Active 2015-0 MD PERAZINE INGREDI 2 Anderso 00:00: n 00 PROPOXYP DRUG Active 2015-0 MD HENE INGREDI 202 Anderso 00:00: n 00 RISEDRON DRUG Active 2015-0 MD ATE 2 Anderso 00:00: n 00 SCOPOLAM DRUG Active 2015-0 MD INE INGREDI 202 Anderso 00:00: n 00 TUBERCUL DRUG Active 2015- MD IN 08-26 Anderso 00:00: n 00 ALOE DRUG Active MD INGREDI 08-26 Anderso 00:00: n 00 BUPIVACA DRUG Active MD INE INGREDI 08-26 Anderso 00:00: n 00 EUCALYPT DRUG Active MD US INGREDI 08-26 Anderso 00:00: n 00 IODINATE Drug Active MD D Class 08-26 Anderso CONTRAST 00:00: n MEDIA 00 LATEX DRUG Active MD INGREDI 08-26 Anderso 00:00: n 00 LIDOCAIN DRUG Active MD E INGREDI 08-26 Anderso 00:00: n 00 MORPHINE DRUG Active MD INGREDI 08-26 Anderso 00:00: n 00 NICKEL DRUG Active MD INGREDI 08-26 Anderso 00:00: n 00 PROCHLOR DRUG Active MD PERAZINE INGREDI 08-26 Anderso 00:00: n 00 PROPOXYP DRUG Active MD HENE INGREDI 08-26 Anderso 00:00: n 00 RISEDRON DRUG Active MD ATE 08-26 Anderso 00:00: n 00 SCOPOLAM DRUG Active MD INE INGREDI 08-26 Anderso 00:00: n 00 TUBERCUL DRUG Active 2015- MD IN 08-26 Anderso 00:00: n 00 ALOE DRUG Active MD INGREDI 08-26 Anderso 00:00: n 00 BUPIVACA DRUG Active MD INE INGREDI 08-26 Anderso 00:00: n 00 Morphine Morphine Active Unknown Commo n [facility] bupivaca bupivaca Active Unknown Commo n ine ine [facility] scopolam scopolam Active Unknown Commo n ine ine [facility] lidocain lidocain Active Unknown Commo n e e [facility] Social History Social Habit Start Date Stop Date Quantity Comments Source History of Tobacco Use Co mmon [facility] Sex Assigned At Com mon [facility] Exposure to SARS-CoV-2 Not sure [facility] [place] [facility] Smoking Status Start Date Stop Date Source Unknown if ever smoked [facility] [place] [facility] Medications Ordered Filled Start Stop Current Ordering Indication Dosage Frequency Signature Comments Components Source Medication Medication Date Date Medication? Clinician (SIG) Name Name Fluocinonid Fluocinonid 2021-07 2023- No 1{appli BID Fluocinoni e 0.05 % e 0.05 % 09-06 cation} de 0.05 % 00:00: 00:00 00 :00 mv-mn/iron/ Yes 1{tbl} Take 1 Un keny folic 3-08 tablet by ity of acid/herb 10:20: mouth. [place] [address] [address] [facility] (VITAMIN D3 Branch COMPLETE ORAL) mv-mn/iron/ Yes 1{tbl} Take 1 Un keny folic 3-08 tablet by ity of acid/herb 10:20: mouth. [place] [address] [address] Medical (VITAMIN D3 Branch COMPLETE ORAL) venlafaxine Yes 37.5mg Take 37.5 Univers XR 37.5 mg 2-21 mg by ity of 24 hr 08:26: mouth. [place] capsule Medical Branch venlafaxine Yes 75mg Take 75 mg Univers XR 75 mg 24 2-21 by mouth. ity of hr capsule 08:26: [address] Branch vit A/vit Yes Take by Unive rs C/vit 2-21 mouth. ity of E/zinc/venkata 08:26: [facility] (ICAPS 02 Medical AREDS ORAL) Branch venlafaxine Yes 37.5mg Take 37.5 Univers XR 37.5 mg 2-21 mg by ity of 24 hr 08:26: mouth. [place] capsule Medical Branch venlafaxine Yes 75mg Take 75 mg Univers XR 75 mg 24 2-21 by mouth. ity of hr capsule 08:26: [address] Branch vit A/vit Yes Take by Unive rs C/vit 2-21 mouth. ity of E/zinc/venkata 08:26: [facility] (ICAPS 02 Medical AREDS ORAL) Branch amoxicillin Yes Univer s -clavulanat 1-03 ity of e 875-125 00:00: [place] mg per 00 Medical tablet Branch amoxicillin Yes Univer s -clavulanat 07-27 ity of e 875-125 00:00: [place] mg per 00 Medical tablet Branch Amoxicillin Amoxicillin 0 2021- No 1{table BID -Pot -Pot 07-27 t} Clavulanate Clavulanate 00:00: 00:00 875-125 MG 875-125 MG 00 :00 Levaquin Levaquin 2020- No 1{table QD Levaquin 750 MG 750 MG 12-23 t} 750 MG 00:00: 00:00 00 :00 Levaquin Levaquin 2020- No 1{table QD Levaquin 750 MG 750 MG 12-23 t} 750 MG 00:00: 00:00 00 :00 Bactrim DS Bactrim DS 2020- No 1{table BID Bactrim DS Common 800-160 MG 800-160 MG -12-04 t} 800-160 [facility] 00:00: 00:[facility] - [facility] 00 :00 [facility] Bactrim DS Bactrim DS 2020- No 1{table BID Bactrim DS Common 800-160 MG 800-160 MG 5-12-04 t} 800-160 [facility] 00:00: 00:[facility] - [facility] 00 :00 [facility] Bactrim DS Bactrim DS 2020- No 1{table BID Bactrim DS 800-160 MG 800-160 MG -12-04 t} 800-160 MG 00:00: 00:00 00 :00 fluocinonid fluocinonid 2020- No BID fluocinoni e 0.05% e 0.05% 04-23 de 0.05% 00:00: 00:00 00 :00 fluocinonid fluocinonid 2020- No BID fluocinoni Common e 0.05% e 0.05% 04-23 de 0.05% Spir it 00:00: 00:00 - [facility] 00 :00 [facility] fluocinonid fluocinonid 2020- No BID fluocinoni Common e 0.05% e 0.05% 04-23 de 0.05% Spir it 00:00: 00:00 - [facility] 00 :00 [facility] fluocinonid fluocinonid 2020- No BID fluocinoni e 0.05% e 0.05% 04-23 08 de 0.05% 00:00: 00:00 00 :00 fluocinonid fluocinonid 2020- No BID fluocinoni e 0.05% e 0.05% 04-23 de 0.05% 00:00: 00:00 00 :00 fluocinonid fluocinonid 2020- No BID fluocinoni e 0.05% e 0.05% 04-23 de 0.05% 00:00: 00:00 00 :00 fluocinonid fluocinonid 2020- No BID fluocinoni e 0.05% e 0.05% 04-23 de 0.05% 00:00: 00:00 00 :00 fluocinonid fluocinonid 2018- No Indira apply to Common e e 04-23 [place] affected [facility] 00:00: 00:00 area - [facility] 00 :00 [facility] Cefdinir Cefdinir 0 No BID Cefdinir 300 MG 300 MG 2-07 300 MG 00:00: 00 Ciprodex Ciprodex 2018- No 4{drops BID Ciprodex 0.3-0.1 % 0.3-0.1 % 2-07 _into_a 0.3-0.1 % 00:00: ffected 00 _ear} Cefdinir Cefdinir No BID 300 MG 300 MG 207 00:00: 00 Ciprodex Ciprodex 2018- No 4{drops BID 0.3-0.1 % 0.3-0.1 % 2-07 _into_a 00:00: ffected 00 _ear} Cefdinir Cefdinir 2018-0 No BID Cefdinir 300 MG 300 MG 2-07 300 MG 00:00: 00 Ciprodex Ciprodex 2018- No 4{drops BID Ciprodex 0.3-0.1 % 0.3-0.1 % 2-07 _into_a 0.3-0.1 % 00:00: ffected 00 _ear} Cefdinir Cefdinir No BID Cefdinir 300 MG 300 MG 2-07 300 MG 00:00: 00 Ciprodex Ciprodex No 4{drops BID Ciprodex 0.3-0.1 % 0.3-0.1 % 2-07 _into_a 0.3-0.1 % 00:00: ffected 00 _ear} Ciprodex Ciprodex No 4{drops BID Ciprodex 0.3-0.1 % 0.3-0.1 % 2-07 _into_a 0.3-0.1 % 00:00: ffected 00 _ear} Cefdinir Cefdinir No BID Cefdinir 300 MG 300 MG 2-07 300 MG 00:00: 00 Ciprodex Ciprodex No 4{drops BID Ciprodex 0.3-0.1 % 0.3-0.1 % 2-07 _into_a 0.3-0.1 % 00:00: ffected 00 _ear} Ciprodex Ciprodex No 4{drops BID Ciprodex Common 0.3-0.1 % 0.3-0.1 % 2-07 _into_a 0.3-0.1 % Spirit 00:00: ffected - [facility] 00 _ear} [facility] Ciprodex Ciprodex No 4{drops BID Ciprodex Common 0.3-0.1 % 0.3-0.1 % 2-07 _into_a 0.3-0.1 % Spirit 00:00: ffected - [facility] 00 _ear} [facility] Ciprodex Ciprodex No 4{drops BID Ciprodex 0.3-0.1 % 0.3-0.1 % 2-07 _into_a 0.3-0.1 % 00:00: ffected 00 _ear} Ciprodex Ciprodex No 4{drops BID Ciprodex 0.3-0.1 % 0.3-0.1 % 2-07 _into_a 0.3-0.1 % 00:00: ffected 00 _ear} Ciprodex Ciprodex 2019-0 No 4{drops BID Ciprodex 0.3-0.1 % 0.3-0.1 % 2-07 _into_a 0.3-0.1 % 00:00: ffected 00 _ear} Venlafaxine Venlafaxine Yes Indira 1 tablet Common HCl HCl [place] with food [facility] Venlafaxine Venlafaxine Yes Indira not Common HCl HCl [place] defined [facility] Tamoxifen Tamoxifen Yes Indira 1 tablet Common Citrate Citrate [facility] Venlafaxine Venlafaxine No QD Venlafaxin HCl 75 MG HCl 75 MG e HCl 75 MG Venlafaxine Venlafaxine No 1{table QD Venlafaxin HCl 37.5 MG HCl 37.5 MG t_with_ e HCl 37.5 food} MG Venlafaxine Venlafaxine No QD Venlafaxin HCl 75 MG HCl 75 MG e HCl 75 MG Venlafaxine Venlafaxine No 1{table QD Venlafaxin HCl 37.5 MG HCl 37.5 MG t_with_ e HCl 37.5 food} MG Venlafaxine Venlafaxine No QD Venlafaxin HCl 75 MG HCl 75 MG e HCl 75 MG Venlafaxine Venlafaxine No 1{table QD Venlafaxin HCl 37.5 MG HCl 37.5 MG t_with_ e HCl 37.5 food} MG Venlafaxine Venlafaxine No 1{table QD Venlafaxin Common HCl 37.5 MG HCl 37.5 MG t_with_ e HCl 37.5 Spirit food} [facility] Venlafaxine Venlafaxine No QD Venlafaxin Common HCl 75 MG HCl 75 MG e HCl 75 S pirit [facility] Venlafaxine Venlafaxine No 1{table QD Venlafaxin Common HCl 37.5 MG HCl 37.5 MG t_with_ e HCl 37.5 Spirit food} [facility] Venlafaxine Venlafaxine No QD Venlafaxin Common HCl 75 MG HCl 75 MG e HCl 75 S pirit [facility] Venlafaxine Venlafaxine No 1{table QD Venlafaxin HCl 37.5 MG HCl 37.5 MG t_with_ e HCl 37.5 food} MG Venlafaxine Venlafaxine No QD Venlafaxin HCl 75 MG HCl 75 MG e HCl 75 MG Venlafaxine Venlafaxine No 1{table QD Venlafaxin HCl 37.5 MG HCl 37.5 MG t_with_ e HCl 37.5 food} MG Venlafaxine Venlafaxine No QD Venlafaxin HCl 75 MG HCl 75 MG e HCl 75 MG Venlafaxine Venlafaxine No 1{table QD Venlafaxin HCl 37.5 MG HCl 37.5 MG t_with_ e HCl 37.5 food} MG Venlafaxine Venlafaxine No QD Venlafaxin HCl 75 MG HCl 75 MG e HCl 75 MG Venlafaxine Venlafaxine No 1{table QD Venlafaxin HCl 37.5 MG HCl 37.5 MG t_with_ e HCl 37.5 food} MG Venlafaxine Venlafaxine No QD Venlafaxin HCl 75 MG HCl 75 MG e HCl 75 MG Venlafaxine Venlafaxine No QD HCl 75 MG HCl 75 MG Venlafaxine Venlafaxine No 1{table QD HCl 37.5 MG HCl 37.5 MG t_with_ food} Venlafaxine Venlafaxine No QD Venlafaxin HCl 75 MG HCl 75 MG e HCl 75 MG Venlafaxine Venlafaxine No 1{table QD Venlafaxin HCl 37.5 MG HCl 37.5 MG t_with_ e HCl 37.5 food} MG Vital Signs Vital Name Observation Time Observation Value Comments Source height 2022-07-06 16:20:00 67 [in_i] [facility] weight 2022-07-06 16:20:00 218.2 [lb_av] [facility] temperature 2022-07-06 16:20:00 97.1 [facility]degF[facility] 2022-07-06 16:20:00 34.17 kg/m2 [facility] oximetry 2022-07-06 16:20:00 97 % [facility] respiratory rate 2022-07-06 16:20:00 17 /min [facility] blood pressure 2022-07-06 16:20:00 132 mm[Hg] Common [facility] - systolic [facility] blood pressure 2022-07-06 16:20:00 78 mm[Hg] Common [facility] - diastolic [facility] Body temperature 2021-09-29 16:21:00 [facility] 2021-09-29 16:21:00 170.2 cm [facility] Body weight 2021-09-29 16:21:00 102.468 kg [facility] BMI 2021-09-29 16:21:00 35.38 kg/m2 [facility] height 2020-12-23 10:45:00 67 [in_i] Common [facility] weight 2020-12-23 10:45:00 223.4 [lb_av] Common [facility] temperature 2020-12-23 10:45:00 98.1 [degF] Common [facility] bmi 2020-12-23 10:45:00 34.99 kg/m2 [facility] height 2020-11-27 14:20:00 67 [in_i] [facility] weight 2020-11-27 14:20:00 223.4 [lb_av] [facility] temperature 2020-11-27 14:20:00 98.5 [degF] [facility] bmi 2020-11-27 14:20:00 34.99 kg/m2 [facility] oximetry 2020-11-27 14:20:00 94 % [facility] respiratory rate 2020-11-27 14:20:00 18 /min Comm on [facility] blood pressure 2020-11-27 14:20:00 122 mm[Hg] [facility] blood pressure 2020-11-27 14:20:00 60 mm[Hg] [facility] Procedures This patient has no known procedures. Encounters Start End Encounter Admission Attending Care Care Encounter Source Date/Time Date/Time Type Type Clinicians Facility Department ID 2021-08-27 Outpatient MDA MDA [id number] 18:27:17 Alexander tavera 2022-09-22 2022-09-22 Outpatient LEANDRO ROBINS MDA MDA [id number] 13:51:47 14:49:33 Robbin tavera 2022-09-13 2022-09-13 Outpatient MARCELA DOE MDA MDA [id number] 09:03:49 09:03:49 Robbin Nava 2022-09-09 2022-09-09 Outpatient MARCELA ETIENNE MDA MDA [id number] MD 11:45:59 12:08:48 ANRDZEJ tavera 2022-09-06 2022-09-06 Outpatient MARCELA DOE MDA MDA [id number] 14:31:46 15:09:05 ORobbin 2022-09-03 2022-09-03 Outpatient MARCELA ETIENNE MDA MDA [id number] MD 07:20:18 07:20:18 ANDRZEJ tavera 2022-09-03 2022-09-03 Outpatient MARCELA ETIENNE MDA MDA [id number] MD 06:49:15 07:17:09 ANDRZEJ tavera 2022-07-12 2022-07-12 Outpatient MARCELA ANNA MDA MDA [id number] 15:10:32 16:30:51 JUANITO tavera 2022-07-11 2022-07-11 Outpatient MARCELA ANNA MDA MDA [id number] 09:00:00 23:59:00 JUANITO tavera 2022-07-11 2022-07-11 Outpatient MARCELA ANNA MDA MDA [id number] MD 09:45:49 09:45:49 JUANITO tavera 2022-07-06 2022-07-06 OFFICE STLMLC STLMLC [id number] Co mmon 00:00:00 00:00:00 VISIT EST Spir it PT LEVEL 3 - [facility] 2022-06-16 2022-06-16 (TEL) STLMLC STLMLC [id number] Co mmon 00:00:00 00:00:00 [facility] 2022-06-04 2022-06-04 (TEL) STLMLC STLMLC [id number] Co mmon 00:00:00 00:00:00 [facility] 2022-03-17 2022-03-17 Outpatient MARCELA MOSQUEDA MDA MDA [id number] 12:55:34 23:59:00 RUBY dale n 2022-03-17 2022-03-17 Outpatient MARCELA MOORE MDA MDA [id number] 13:48:41 14:40:54 EUGENIO Simon rso n 2021-09-29 2021-09-29 [facility] [id number] Univers 10:30:00 11:40:19 MARCELA fay [facility] 2021-09-29 2021-09-29 Office JUSTICE Zamora [id number] Univers 10:30:00 11:40:19 Visit Marcela Denney [id number] ity [facility] [id number] Branden as BANK [phone] [facility] BLDG. [address] 2021-09-29 2021-09-29 Outpatient [facility] [id number] Univers 10:30:00 10:30:00 MARCELA fay [facility] 2021-09-14 2021-09-14 Surgery ORLY Zamora [id number] Univers 07:15:00 08:25:00 Marcela SARAH [id number] ity [facility] [id number] Branden as [phone] [facility] [address] 2021-09-14 2021-09-14 [facility] [id number] Univers 05:29:00 08:15:00 MARCELA fay [facility] 2021-09-14 2021-09-14 [facility] ORLY Zamora [id number] Univers 05:29:00 08:15:00 Encounter Marcela Shmuel TYREL [id number] ity of [facility] [id number] Branden as [id number] [facility] [address] 2021-09-11 2021-09-11 Laboratory Only, Adc Test [facility] [id number] Univers 13:00:00 13:15:00 Only Ronny Pearson [id number] ity of [place] [id number] [place] [facility] [phone] [facility] [address] 2021-09-11 2021-09-11 Outpatient Lev [facility] [id number] Univers 13:00:00 13:00:00 RONNY itcharlette [facility] 2021-09-11 2021-09-11 Orders Doctor SARKAR [id number] Univers 00:00:00 00:00:00 Only Unassigned, TYREL [id number] ity of [place] [facility] [id number] Branden as [phone] [facility] [address] 2021-08-18 2021-08-18 Office BREANNE Zamora [id number] Univers 10:15:00 10:30:00 Visit Marcela Shmuel Charlette [id number] ity of [facility] [id number] Branden as BANK [phone] [facility] BLDG. [address] 2021-08-18 2021-08-18 Outpatient Lev [facility] [id number] Univers 10:15:00 10:15:00 MARCELA fay [facility] 2021-08-18 2021-08-18 Outpatient [facility] [id number] Univers 10:15:00 10:15:00 MARCELA fay [facility] 2021-08-18 2021-08-18 Orders Doctor SARKAR [id number] Univers 00:00:00 00:00:00 Only Unassigned, TYREL [id number] ity of [place] [facility] [id number] Branden as [id number] [place] [address] [address] 2021-07-27 2021-07-27 (TEL) STLMLC STLMLC [id number] Co mmon 00:00:00 00:00:00 [facility] 2021-07-06 2021-07-06 Outpatient MARCELA ANNA MDA MDA [id number] 14:14:38 15:01:27 JUANITO tavera 2021-07-05 2021-07-05 Outpatient MARCELA ANNA, MDA MDA [id number] 14:48:53 23:59:00 JUANITO tavera 2021-07-05 2021-07-05 Outpatient MARCELA ANNA, MDA MDA [id number] 14:59:01 14:59:01 JUANITO tavera 2021-03-12 2021-03-12 Outpatient MARCLEA MOORE, MDA MDA [id number] 12:45:00 23:59:00 EUGENIO tavera 2021-03-12 2021-03-12 Outpatient MARCELA OSCAR, MDA MDA [id number] 13:24:44 14:45:48 EUGENIO tavera 2021-02-09 2021-02-09 (TEL) STLMLC STLMLC [id number] Co mmon 00:00:00 00:00:00 [facility] 2021-01-09 2021-01-09 Outpatient MARCELA CASTELLANO, MDA MDA [id number] 10:58:19 10:58:19 HARISH tavera 2021-01-09 2021-01-09 Outpatient MARCELA CASTELLANO, MDA MDA [id number] 08:12:49 08:12:49 HARISH tavera 2020-12-31 2020-12-31 (TEL) STLMLC STLMLC [id number] Co mmon 00:00:00 00:00:00 [facility] 2020-12-23 2020-12-23 OFFICE STLMLC STLMLC [id number] Co mmon 00:00:00 00:00:00 VISIT [facility] LEVEL 1 [facility] 2020-12-04 2020-12-04 (TEL) STLMLC STLMLC [id number] Co mmon 00:00:00 00:00:00 [facility] 2020-12-01 2020-12-01 OFFICE STLMLC STLMLC [id number] Co mmon 00:00:00 00:00:00 VISIT [facility] EST[facility] PT - [facility] LEVEL 1 [facility] 2020-11-28 2020-11-28 (TEL) STLMLC STLMLC [id number] Co mmon 00:00:00 00:00:00 [facility] 2020-11-27 2020-11-27 OFFICE STLMLC STLMLC [id number] Co mmon 00:00:00 00:00:00 VISIT EST Spir it PT LEVEL 3 - [facility] 2020-07-06 2020-07-06 Outpatient MARCELA VIRGEN MDA MDA [id number] MD 10:31:30 10:31:30 ELIJAH Alfredcastro tavera 2020-01-17 2020-01-17 [facility] [id number] Common 11:40:00 11:40:00 [facility] 2019-04-23 2019-04-23 [facility] [id number] Common 15:20:00 15:20:00 [facility] 2018-09-06 2018-09-06 [facility] [id number] Common 09:25:00 09:25:00 [facility] 2018-08-31 2018-08-31 [facility] [id number] Common 13:15:00 13:15:00 [facility] Results This patient has no known results.
[2022-10-01] MEDS ORDERED: NA CHLORIDE 0.9% 1,000 ML ONE (12:33)
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
[2022-10-01 13:47] LABS: Albumin 3.4 g/dL (3.4-5.0); Bilirubin Total 0.3 mg/dL (0.2-1.0); Potassium 4.2 mmol/L (3.5-5.1); Protein, Total 7.8 g/dL (6.4-8.2); Troponin High Sensitivity 3.4 pg/mL (<58.9)
[2022-10-01] MEDS ORDERED: KETOROLAC 30 MG/ML INJ ONE (13:51)
[2022-10-01 15:06] VITALS: TEMP 98.3
[2022-10-01 15:07] VITALS: BP 136/80; O2SAT 99
--- NOTE | 2022-10-04 13:12 | EKG ---
Test Date: 2022-10-01 Test Time: 14:00:11 Peer Counselor: PUJA MEASUREMENT RESULTS: Intervals: Rate: 59 [place]: 154 QRSD: 90 QT: 422 QTc: 417 [place]: P: 61 NJ: 154 QRS: 52 T: 63 INTERPRETIVE STATEMENTS: Sinus bradycardia Otherwise normal ECG Compared to ECG 11/07/2020 18:03:38 Sinus rhythm no longer present Electronically Signed On 10-04-22 13:07:46 CDT by Prasanna Baker
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
== END 2022-10-01 14:29 | disposition home or self-care (01) ==
LOC: ER 11:55
DX: S00.83XA Contusion of other part of head, initial encounter (principal); S30.0XXA Contusion of lower back and pelvis, initial encounter; S40.021A Contusion of right upper arm, initial encounter; V49.59XA Passenger injured in collision with other motor vehicles in traffic accident, initial encounter; Z88.1 Allergy status to other antibiotic agents; Z88.5 Allergy status to narcotic agent; Z88.8 Allergy status to other drugs, medicaments and biological substances; Z91.040 Latex allergy status; Z91.041 Radiographic dye allergy status; Z91.048 Other nonmedicinal substance allergy status
CPT/HCPCS: 93005; 36415; 82550; 84484; 80053; 70450; 71250; 72125; 96374; 99284; J7030